=== PATIENT | male | born 1945 | race Caucasian/White ===

== ENCOUNTER 2021-04-02 20:22 | Emergency (ER) | payer OTHER ==
[~2021-04-02] VITALS: Ht 177.8 cm; Wt 77.1 kg
[2021-04-02 20:51] LABS: Hematocrit 37.2 % (37.0-53.0); Hemoglobin 11.9 g/dL (13.5-17.5); Mean Corpuscular HGB 29.6 pg (26.0-34.0); Mean Corpuscular Volume 93 fL (80-100); Platelet Count 56 K/mm3 (150-400); RDW Coefficient Variation 17.8 % (11.7-14.2); RDW Standard Deviation 60.5 fL (35.1-46.3); Red Blood Cell Count 4.02 M/mm3 (4.30-5.90)
[2021-04-02 21:03] LABS: Albumin, Blood 3.2 g/dL (3.4-5.0); Albumin/Globulin Ratio 0.8 (0.8-1.8); Bilirubin, Total 0.5 mg/dL (0.1-1.0); Calcium, Blood 8.5 mg/dL (8.5-10.1); Creatinine, Blood 1.21 mg/dL (0.60-1.20); Potassium, Blood 4.2 mmol/L (3.5-5.5); Total Protein, Blood 7.2 g/dL (6.4-8.2)
[2021-04-02 21:11] LABS: BAND PERCENT MAN 24 % (0-8); BASOPHILS PERCENT MAN 0 % (0-2); EOSINOPHILS ABSOLUTE MAN 0.09 K/mm3 (0.00-0.68); EOSINOPHILS PERCENT MAN 2 % (0-6); LYMPHOCYTES % ATYPICAL MANUAL 2 % (0-0); LYMPHOCYTES ABSOLUTE MAN 0.67 K/mm3 (0.84-5.20); LYMPHOCYTES PERCENT MAN 13 % (21-46); MONOCYTES ABSOLUTE MAN 0.13 K/mm3 (0.16-1.47); MONOCYTES PERCENT MAN 3 % (4-13); SEG NEUTROPHILS PERCENT MAN 56 % (41-73); TOTAL CELLS COUNTED 100
[2021-04-03] MEDS ORDERED: ONDA4ODT MM (00:29)
[2021-04-03] MEDS ORDERED: MECL25 PO (00:29)
== END 2021-04-03 00:50 | disposition home or self-care (01) ==
LOC: ER 20:22
PROVIDERS: Physician Assistant
DX: R42 Dizziness and giddiness (principal); R11.2 Nausea with vomiting, unspecified; E11.9 Type 2 diabetes mellitus without complications; I10 Essential (primary) hypertension; Z20.822 Contact with and (suspected) exposure to COVID-19; Z79.899 Other long term (current) drug therapy
CPT/HCPCS: 70450; 71045; 80053; 85025; 93005; 93010; 99285-25

== ENCOUNTER 2021-05-25 21:52 | Emergency (ER) | payer OTHER ==
[~2021-05-25] VITALS: Ht 177.8 cm; Wt 77.1 kg
[~2021-05-25 21:52] MED LIST: MECL25 PO; ONDA4ODT MM
[2021-05-25 22:22] LABS: BASOPHILS ABSOLUTE AUTO 0.04 K/mm3 (0.00-0.23); BASOPHILS PERCENT AUTO 1 % (0-2); EOSINOPHILS ABSOLUTE AUTO 0.07 K/mm3 (0.00-0.68); EOSINOPHILS PERCENT AUTO 1 % (0-6); Hematocrit 39.3 % (37.0-53.0); Hemoglobin 12.6 g/dL (13.5-17.5); Mean Corpuscular HGB 29.4 pg (26.0-34.0); Mean Corpuscular HGB Conc 32.1 g/dL (31.5-36.5); Mean Corpuscular Volume 92 fL (80-100); RDW Coefficient Variation 18.2 % (11.7-14.2); RDW Standard Deviation 60.9 fL (35.1-46.3); Red Blood Cell Count 4.29 M/mm3 (4.30-5.90); White Blood Cell Count 5.55 K/mm3 (4.00-11.30)
[2021-05-25 22:24] LABS: IMMATURE GRAN ABSOLUTE AUTO 0.92 K/mm3 (0.00-0.10); IMMATURE GRAN PERCENT AUTO 17 % (0-1); LYMPHOCYTES ABSOLUTE AUTO 0.99 K/mm3 (0.84-5.20); LYMPHOCYTES PERCENT AUTO 18 % (21-46); MONOCYTES PERCENT AUTO 9 % (4-13); NEUTROPHILS ABSOLUTE AUTO 3.03 K/mm3 (1.96-9.15); NEUTROPHILS PERCENT AUTO 55 % (41-73)
[2021-05-25 22:25] LABS: Platelet Count 41 K/mm3 (150-400)
[2021-05-25 22:40] LABS: BAND PERCENT MAN 12 % (0-8); BASOPHILS ABSOLUTE MAN 0.05 K/mm3 (0.00-0.23); BASOPHILS PERCENT MAN 1 % (0-2); EOSINOPHILS ABSOLUTE MAN 0.11 K/mm3 (0.00-0.68); EOSINOPHILS PERCENT MAN 2 % (0-6); LYMPHOCYTES % ATYPICAL MANUAL 2 % (0-0); LYMPHOCYTES ABSOLUTE MAN 0.94 K/mm3 (0.84-5.20); LYMPHOCYTES PERCENT MAN 15 % (21-46); METAMYELOCYTE ABSOLUTE MAN 0.11 K/mm3 (0.00-0.00); METAMYELOCYTE PERCENT MAN 2 % (0-0); MONOCYTES ABSOLUTE MAN 0.44 K/mm3 (0.16-1.47); MONOCYTES PERCENT MAN 8 % (4-13); NEUTROPHILS ABSOLUTE MAN 3.88 K/mm3 (1.96-9.15); SEG NEUTROPHILS PERCENT MAN 58 % (41-73); TOTAL CELLS COUNTED 100
[2021-05-25 22:41] LABS: Alanine Aminotransfer (ALT/SGP 17 U/L (12-78); Albumin, Blood 3.3 g/dL (3.4-5.0); Albumin/Globulin Ratio 0.8 (0.8-1.8); Alk Phos 99 U/L (50-136); Anion Gap 7 mmol/L (6-16); Aspartate Aminotrans (AST/SGOT 17 U/L (12-37); Bilirubin, Total 0.5 mg/dL (0.1-1.0); Blood Urea Nitrogen 20 mg/dL (8-24); Bun/Creatinine Ratio 16.1 (12.0-20.0); CO2, Blood 25 mmol/L (21-32); Calcium, Blood 8.9 mg/dL (8.5-10.1); Chloride, Blood 106 mmol/L (98-108); Creatinine, Blood 1.24 mg/dL (0.60-1.20); Ethanol (Alcohol), Blood, Med <3 mg/dL; Globulin, Blood 4.1 g/dL (2.2-4.0); Glomerular Filtration Rate 56 (60-); Glucose, Blood 267 mg/dL (70-99); Potassium, Blood 4.4 mmol/L (3.5-5.5); Sodium, Blood 138 mmol/L (136-145); Total Protein, Blood 7.4 g/dL (6.4-8.2); Troponin I <0.015 ng/mL (0.000-0.040)
[2021-05-26] MEDS ORDERED: MECL25 PO (00:55)
== END 2021-05-26 03:30 | disposition home or self-care (01) ==
LOC: ER 21:52
PROVIDERS: Emergency Medicine
DX: R42 Dizziness and giddiness (principal); D69.6 Thrombocytopenia, unspecified; E11.9 Type 2 diabetes mellitus without complications; I10 Essential (primary) hypertension
CPT/HCPCS: 70450; 80053; 84484; 85025; 93005; 93010; 96374; 96375; 99285-25; A9270; G0480; J2405; J2765; J3360; J7030

== ENCOUNTER 2022-01-23 11:58 | Emergency (ER) | payer OTHER ==
[~2022-01-23] VITALS: Ht 177.8 cm; Wt 77.1 kg
[2022-01-23 12:34] LABS: Source, Urine Clean Catch
[2022-01-23 12:36] LABS: Hematocrit 42.2 % (37.0-53.0); Hemoglobin 13.3 g/dL (13.5-17.5); Mean Corpuscular HGB 29.3 pg (26.0-34.0); Mean Corpuscular HGB Conc 31.5 g/dL (31.5-36.5); Mean Corpuscular Volume 93 fL (80-100); RDW Coefficient Variation 17.4 % (11.7-14.2); RDW Standard Deviation 59.2 fL (35.1-46.3); Red Blood Cell Count 4.54 M/mm3 (4.30-5.90); White Blood Cell Count 4.57 K/mm3 (4.00-11.30)
[2022-01-23 12:37] LABS: Appearance, Urine Clear (Clear); Bilirubin, Urine Neg (Neg); Blood, Urine 1+ (Neg); Color, Urine Yellow (P-Yellow); Glucose Qualitative, Urine 4+ (Neg); Ketones, Urine 1+ (Neg); Leukocyte Esterase, Urine Neg (Neg); Nitrite, Urine Neg (Neg); Protein, Urine Neg (Neg); Urobilinogen, Urine NORM (Normal); pH, Urine 6.5 (5.0-8.0)
[2022-01-23 12:47] LABS: White Blood Cells, Urine 0-2 /hpf (0-5)
[2022-01-23 12:48] LABS: Bacteria Rare /hpf; Red Blood Cells, Urine 0-2 /hpf (0-2); Squamous Epithelial Cells Rare /hpf (Few)
[2022-01-23 13:02] LABS: Platelet Count 46 K/mm3 (150-400)
[2022-01-23 13:03] LABS: Base Excess Venous 0.5 mmol/L; Bicarbonate Venous 23.5 mmol/L (24.0-30.0); PCO2 Venous 54.6 mmHg (38-42); PO2 Venous 39.4 mmHg (38-42)
[2022-01-23 13:08] LABS: Albumin, Blood 3.4 g/dL (3.4-5.0); Albumin/Globulin Ratio 0.8 (0.8-1.8); BAND PERCENT MAN 14 % (0-8); BASOPHILS PERCENT MAN 0 % (0-2); Bilirubin, Total 0.7 mg/dL (0.1-1.0); Bun/Creatinine Ratio 20.6 (12.0-20.0); Calcium, Blood 8.8 mg/dL (8.5-10.1); Creatinine, Blood 1.07 mg/dL (0.60-1.20); EOSINOPHILS ABSOLUTE MAN 0.04 K/mm3 (0.00-0.68); EOSINOPHILS PERCENT MAN 1 % (0-6); Globulin, Blood 4.2 g/dL (2.2-4.0); LYMPHOCYTES ABSOLUTE MAN 0.68 K/mm3 (0.84-5.20); LYMPHOCYTES PERCENT MAN 15 % (21-46); MONOCYTES ABSOLUTE MAN 0.04 K/mm3 (0.16-1.47); MONOCYTES PERCENT MAN 1 % (4-13); NEUTROPHILS ABSOLUTE MAN 3.79 K/mm3 (1.96-9.15); Potassium, Blood 4.5 mmol/L (3.5-5.5); SEG NEUTROPHILS PERCENT MAN 69 % (41-73); TOTAL CELLS COUNTED 100; Total Protein, Blood 7.6 g/dL (6.4-8.2)
[2022-01-23] MEDS ORDERED: MECL12.5 PO (14:26)
[2022-01-23] MEDS ORDERED: PROM12.5S PR (14:26)
== END 2022-01-23 15:10 | disposition home or self-care (01) ==
LOC: ER 11:58
PROVIDERS: Physician Assistant
DX: R42 Dizziness and giddiness (principal); I10 Essential (primary) hypertension; E11.9 Type 2 diabetes mellitus without complications; Z79.899 Other long term (current) drug therapy; Z91.14 Patient's other noncompliance with medication regimen
CPT/HCPCS: 70450; 71045; 80053; 81001; 82803; 85025; 93005; 93010; 96374; 99285-25; A9270; J2550; J7030

== ENCOUNTER 2024-03-28 21:45 | Emergency (ER) | payer OTHER ==
[~2024-03-28] VITALS: Ht 177.8 cm; Wt 74.8 kg
[~2024-03-28 21:45] MED LIST changes: +MECL12.5 PO; +PROM12.5S PR
[2024-03-28 22:27] VITALS: BP 162/88
== END 2024-03-28 23:18 | disposition home or self-care (01) ==
LOC: ER 21:45
DX: Z48.812 Encounter for surgical aftercare following surgery on the circulatory system (principal); E11.9 Type 2 diabetes mellitus without complications; I10 Essential (primary) hypertension; Z79.899 Other long term (current) drug therapy
CPT/HCPCS: 99283

== ENCOUNTER → 2024-06-13 | Outpatient (CLI) | payer OTHER ==
[~2024-06-13] MED LIST changes: +LOSA50 PO; +PRED20 PO; +Prednisone10 MG PO; +SITA100T2 PO
[2024-06-13 17:24] LABS: Hematocrit 27.2 % (37.0-53.0); Hemoglobin 8.4 g/dL (13.5-17.5); Mean Corpuscular HGB 30.2 pg (26.0-34.0); Mean Corpuscular HGB Conc 30.9 g/dL (31.5-36.5); Mean Corpuscular Volume 98 fL (80-100); RDW Standard Deviation 77.8 fL (35.1-46.3); Red Blood Cell Count 2.78 M/mm3 (4.30-5.90); White Blood Cell Count 7.66 K/mm3 (4.00-11.30)
[2024-06-13 18:21] LABS: Platelet Count 32 K/mm3 (150-400)
[2024-06-13 18:28] LABS: BAND PERCENT MAN 22 % (0-8); BASOPHILS PERCENT MAN 0 % (0-2); EOSINOPHILS PERCENT MAN 0 % (0-6); LYMPHOCYTES % ATYPICAL MANUAL 1 % (0-0); LYMPHOCYTES ABSOLUTE MAN 1.37 K/mm3 (0.84-5.20); LYMPHOCYTES PERCENT MAN 17 % (21-46); MONOCYTES ABSOLUTE MAN 0.91 K/mm3 (0.16-1.47); MONOCYTES PERCENT MAN 12 % (4-13); NEUTROPHILS ABSOLUTE MAN 5.36 K/mm3 (1.96-9.15); SEG NEUTROPHILS PERCENT MAN 48 % (41-73); TOTAL CELLS COUNTED 100
== END ==
LOC: LAB 15:51 → LAB SHORT 15:51
PROVIDERS: Internal Medicine Hematology & Oncology
DX: D69.6 Thrombocytopenia, unspecified (principal)
CPT/HCPCS: 85025

== ENCOUNTER 2024-06-18 10:44 | Inpatient (IN) | payer OTHER ==
[~2024-06-18] VITALS: Ht 167.6 cm; Wt 61.4 kg
[~2024-06-18 10:44] MED LIST changes: -LOSA50 PO; -PRED20 PO; -Prednisone10 MG PO; -SITA100T2 PO
[2024-06-18] MEDS ORDERED: NS 1,000 ML IV SCH ×2 (11:50→15:10)
[2024-06-18 11:52] LABS: Source, Urine Straight Cath
[2024-06-18 12:01] LABS: Hematocrit 24.5 % (37.0-53.0); Hemoglobin 7.6 g/dL (13.5-17.5); Mean Corpuscular HGB 29.9 pg (26.0-34.0); Mean Corpuscular Volume 97 fL (80-100); RDW Coefficient Variation 21.7 % (11.7-14.2); Red Blood Cell Count 2.54 M/mm3 (4.30-5.90); White Blood Cell Count 10.82 K/mm3 (4.00-11.30)
[2024-06-18 12:04] LABS: Appearance, Urine Hazy (Clear); Bilirubin, Urine Neg (Neg); Blood, Urine 5+ (Neg); Color, Urine Yellow (P-Yellow); Glucose Qualitative, Urine 4+ (Neg); Ketones, Urine Neg (Neg); Leukocyte Esterase, Urine 3+ (Neg); Nitrite, Urine Pos (Neg); Protein, Urine 2+ (Neg); Urobilinogen, Urine NORM (Normal); pH, Urine 6.5 (5.0-8.0)
[2024-06-18 12:06] LABS: Platelet Count 24 K/mm3 (150-400)
[2024-06-18 12:13] LABS: Albumin, Blood 2.6 g/dL (3.4-5.0); Albumin/Globulin Ratio 0.5 (0.8-1.8); Bun/Creatinine Ratio 48.4 (12.0-20.0); Calcium, Blood 8.9 mg/dL (8.5-10.1); Creatinine, Blood 1.59 mg/dL (0.60-1.20); Globulin, Blood 4.8 g/dL (2.2-4.0); Magnesium, Blood 2.1 mg/dL (1.6-2.4); Phosphorus, Blood 3.1 mg/dL (2.5-4.9); Potassium, Blood 4.9 mmol/L (3.5-5.5); Total Protein, Blood 7.4 g/dL (6.4-8.2)
[2024-06-18 12:13] LABS: Bacteria Many /hpf; Squamous Epithelial Cells Few /hpf (Few); White Blood Cells, Urine TNTC /hpf (0-5)
[2024-06-18] MEDS ORDERED: LOSA50 PO (12:19)
[2024-06-18] MEDS ORDERED: Prednisone10 MG PO (12:19)
[2024-06-18] MEDS ORDERED: SITA100T2 PO (12:19)
[2024-06-18 12:20] LABS: BASOPHILS PERCENT MAN 0 % (0-2); TOTAL CELLS COUNTED 100
[2024-06-18 12:30] LABS: BAND PERCENT MAN 16 % (0-8); EOSINOPHILS PERCENT MAN 1 % (0-6); LYMPHOCYTES ABSOLUTE MAN 0.54 K/mm3 (0.84-5.20); LYMPHOCYTES PERCENT MAN 5 % (21-46); MONOCYTES ABSOLUTE MAN 0.97 K/mm3 (0.16-1.47); MONOCYTES PERCENT MAN 9 % (4-13); NEUTROPHILS ABSOLUTE MAN 9.19 K/mm3 (1.96-9.15); SEG NEUTROPHILS PERCENT MAN 69 % (41-73)
[2024-06-18] MEDS ORDERED: Vancomycin HCL 2,000 MG in NS 520 ML IV ONE (12:30)
[2024-06-18] MEDS ORDERED: Piperacillin/Tazobactam Sod 3.375 GM in NS 100 ML IV ONE (12:35)
[2024-06-18] MEDS ORDERED: Lidocaine/Tetracaine/Epinephr 3 ML GEL SYRINGE TOP ONE (12:45)
[2024-06-18] MEDS ORDERED: Vancomycin HCL 1,250 MG in NS 250 ML IV ONE (13:20)
[2024-06-18] MEDS ORDERED: FLU VACC TS2024-25(6MOS UP)/PF 45 MCG/0.5 ML SYRINGE IM SCH (15:10)
[2024-06-18] MEDS ORDERED: CefTRIAXone Sodium 1,000 MG in NS 100 ML IV SCH (16:00)
[2024-06-18] MEDS ORDERED: Meclizine HCl 25 MG Tab PO PRN (17:20)
[2024-06-18] MEDS ORDERED: PRED20 PO (18:27)
[2024-06-18 18:31] VITALS: BP 130/71
--- NOTE | 2024-06-18 19:03 | NUR ---
ADMIT/SUMMARY PATIENT ADMITTED FROM ER AT 1815. PATIENT SETTLED INTO ROOM. PATIENT ORIENTED TO ROOM. ADMISSION COMPLETE. PATIENT A&OX4. HOME MEDS COMPLETED. WALLET AND HOME MEDICATIONS IN LOCK BOX IN ROOM PER PATIENT REQUEST. PATIENT REPORTING POOR FOOR INTAKE. IV FLUIDS STARTED. CRITICAL TROP AT 161. DR. HANNON CALLED. PATIENT SHOWED HOW TO USE CALL LIGHT AND TV CONTROLS. PATIENT IS PLEASANT AND COOPERATIVE WITH CARE. REPORT TO LYNDSAY DISLA NIGHTSGAFT NURSE.
--- NOTE | 2024-06-18 19:57 | NUR ---
BG AT HS, 415. NOTIFIED. NEW ORDER FOR HUMULIN ENTERED TO EMAR BY THE
[2024-06-18 20:09] VITALS: BP 127/64
[2024-06-18] MEDS ORDERED: Insulin Human Lispro 100 Units/ML 3ML Syringe SC SCH (21:00)
[2024-06-18] MEDS ORDERED: Lactobacil 2-S.Thermo-Bifido 1 1 Cap PO SCH (21:00)
[2024-06-18] MEDS ORDERED: Insulin Regular 100 UNIT/ML 10ML Vial SC SCH (21:00)
[2024-06-19 00:17] LABS: Hemoglobin 7.4 g/dL (13.5-17.5); Mean Corpuscular HGB 29.7 pg (26.0-34.0); Mean Corpuscular HGB Conc 30.8 g/dL (31.5-36.5); Mean Corpuscular Volume 96 fL (80-100); RDW Coefficient Variation 21.5 % (11.7-14.2); Red Blood Cell Count 2.49 M/mm3 (4.30-5.90)
[2024-06-19 00:26] LABS: Platelet Count 21 K/mm3 (150-400)
[2024-06-19 00:39] LABS: Percent Saturation 21.2 % (20.0-50.0)
[2024-06-19 00:45] LABS: BAND PERCENT MAN 32 % (0-8); BASOPHILS PERCENT MAN 0 % (0-2); EOSINOPHILS PERCENT MAN 0 % (0-6); LYMPHOCYTES ABSOLUTE MAN 0.43 K/mm3 (0.84-5.20); LYMPHOCYTES PERCENT MAN 4 % (21-46); MONOCYTES ABSOLUTE MAN 0.54 K/mm3 (0.16-1.47); MONOCYTES PERCENT MAN 5 % (4-13); NEUTROPHILS ABSOLUTE MAN 9.91 K/mm3 (1.96-9.15); SEG NEUTROPHILS PERCENT MAN 59 % (41-73); TOTAL CELLS COUNTED 100
[2024-06-19 00:58] LABS: Bun/Creatinine Ratio 45.7 (12.0-20.0); Calcium, Blood 8.2 mg/dL (8.5-10.1); Creatinine, Blood 1.4 mg/dL (0.60-1.20); Potassium, Blood 4.4 mmol/L (3.5-5.5)
--- NOTE | 2024-06-19 01:05 | NUR ---
PT'S MIDNIGHT LABS: TROPONIN 216, PLATELETS 21. WILL NOTIFY ON-CALL HOSPITALIST.
--- NOTE | 2024-06-19 03:32 | NUR ---
SHIFT SUMMARY PT IS A&O X3, VERY [place], COOPERATIVE WITH CARE, VERY PLEASANT. PT'S FRIEND/ROOMMATE CALLED A FEW TIMES, LEFT A MESSAGE WITH HIM MANAGER REQUESTING A CALL BACK FROM THIS [employer] MANA[employer]/AN UPDATE OF PT'S CONDITION. UNABLE TO PROVIDE D/T PT ASLEEP AND FEMALE FRIEND NOT LISTED A CONTACT ON PT'S MEDICAL RECORD OR PHYSICAL CHART. PT DENIES PAIN, IS ON RA, O2>90%. CRITICAL VALUES FOR TROPONIN AND PLATELETS RECEIVED FROM HEMATOLOGY. NOTIFIED ON-CALL HOSPITALIST. NOW NEW ORDERS AT THIS TIME. HS B, PROVIDER NOTIFIED. NEW ORDER FOR HUMULIN IN THE EMAR. BED AT THE LOWEST POSITION, CALL LIGHT W/I REACH. NO ACUTE EVENTS DURING THIS SHIFT.
[2024-06-19 04:25] VITALS: BP 140/71
--- NOTE | 2024-06-19 06:02 | NUR ---
VENIPUNCTURE LAB RESULTS RECEIVED FROM LAB: GRAM POSITIVE COCCI IN CLUSTERS.
[2024-06-19 07:31] VITALS: BP 120/60
[2024-06-19] MEDS ORDERED: Folic Acid 1 MG in NS 50 ML IV SCH (10:57)
--- NOTE | 2024-06-19 11:58 | NUR ---
PATIENT HAS VISITORS PACHECO AND CLARA. PATIENT ASKED FOR WALLET, WALLET REMOVED FROM LOCKED CUPBOARD IN ROOM AND GIVEN TO PATIENT. PATIENT GAVE PERMISSION TO DISCUSS HIS MEDICAL WITH CLARA AND PACHECO-PHONE NUMBERS ON BOARD. 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 CLARA AND PACHECO WILL BE PATIENTS RIDE UPON DISCHARGE PER PATIENT.
--- NOTE | 2024-06-19 12:31 | NUR ---
EKG MONITOR IN AT BEDSIDE TO ASSESS PATIENTS ABCESS TO RIGHT UPPER CHEST AND RIGHT LEG BEHIND KNEE. REPORTS THAT BOTH AREAS WILL NEED TO BE DRAINED AND DRAINAGE POSSIBLE LATER TODAY 06/09/24. DR. POLK TO REVIEW PATIENTS NOTES AND WILL BE BACK TO TALK TO JACKSON.
[2024-06-19] MEDS ORDERED: Vancomycin HCL 1,000 MG in NS 250 ML IV SCH (15:00)
[2024-06-19 15:10] VITALS: BP 127/63
--- NOTE | 2024-06-19 18:37 | NUR ---
SHIFT SUMMARY. PATIENT IS A&OX4 AND VERY HARD OF HEARING. 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 PATIENT REPORTS HE HAS DENTURES AT HOME BUT HE DOES NOT HAVE THEM HERE-PATIENTS DIET CHANGED TO BITE SIZE AND SOFT LEVEL 6 AND PATIENT IS STILL HAVING A DIFFICULT TIME CHEWING FOOD-PATIENT SHOWED THE MENU AND NEEDS ASSISTANCE WITH ORDERING FOODS BUT FEELS HE CAN TOLERATE SOMETHINGS ON THE MENU W/O HIS DENTURES. PATIENT IS USING THE URINAL-UA SENT OUT TODAY-URINE IS DARK IN COLOR WITH SEDEMENT-PATIENT DENIES DIFFICULTY URINATING. PATIENT IS ABLE TO MAKE HIS NEEDS KNOWN. PT IN TO SEE PATIENT TODAY-PATIENT IS A 2P ASSIST W/FWW AND GB TO BSC-PT IS RECOMMENDING SNF-CASE MANAGEMENT SENT REFERRALS TO [place], [facility] AND [facility]. PATIENT IS RECEIVING IV ABX-CULTURES BACK TODAY. BED IS LOCKED IN THE LOWEST POSITION WITH CALL LIGHT IN REACH. BED EXIT ENGAGED FOR PATIENT SAFETY. CARE IS ONGOING.
[2024-06-19 19:45] VITALS: BP 126/60
[2024-06-20] VITALS (16 sets, daily range): BP systolic 114–166; BP diastolic 46–67
--- NOTE | 2024-06-20 04:24 | NUR ---
POULTRY INSEMINATOR SUMMARY VSS. IVF OF NS INFUSING AT 100 ML/HR ORDERED. ALERT TO QUESTIONS BUT HARD OF HEARING. COOPERATIVE WITH TREATMENT. ABLE TO REPOSITION SELF IN BED WITHOUT ASSIST. HAS BEEN RESTING QUIETLY WITH FEW INTERRUPTIONS. HOB ELEVATED FOR COMFORT. CALL LIGHT IN REACH, RAILS UP X 2 AND BED IN LOW POSITION FOR SAFETY. WILL CONTINUE TO MONITOR.
[2024-06-20 07:17] LABS: Hemoglobin 6.7 g/dL (13.5-17.5); Mean Corpuscular HGB 29.8 pg (26.0-34.0); Mean Corpuscular HGB Conc 30.5 g/dL (31.5-36.5); Mean Corpuscular Volume 98 fL (80-100); RDW Coefficient Variation 21.2 % (11.7-14.2); RDW Standard Deviation 75.7 fL (35.1-46.3); Red Blood Cell Count 2.25 M/mm3 (4.30-5.90); White Blood Cell Count 7.54 K/mm3 (4.00-11.30)
[2024-06-20 07:32] LABS: Platelet Count 19 K/mm3 (150-400)
[2024-06-20 07:34] LABS: Anion Gap 11 mmol/L (3-11); Blood Urea Nitrogen 43 mg/dL (8-24); Bun/Creatinine Ratio 34.4 (12.0-20.0); CO2, Blood 20 mmol/L (21-32); Calcium, Blood 7.9 mg/dL (8.5-10.1); Chloride, Blood 110 mmol/L (98-108); Creatinine, Blood 1.25 mg/dL (0.60-1.20); Glomerular Filtration Rate 58 (60-); Glucose, Blood 249 mg/dL (70-99); Phosphorus, Blood 1.8 mg/dL (2.5-4.9); Sodium, Blood 137 mmol/L (136-145)
[2024-06-20 07:47] LABS: BASOPHILS PERCENT MAN 0 % (0-2); EOSINOPHILS PERCENT MAN 0 % (0-6); LYMPHOCYTES PERCENT MAN 8 % (21-46); METAMYELOCYTE ABSOLUTE MAN 0.07 K/mm3 (0.00-0.00); METAMYELOCYTE PERCENT MAN 1 % (0-0); MONOCYTES ABSOLUTE MAN 0.52 K/mm3 (0.16-1.47); MONOCYTES PERCENT MAN 7 % (4-13); NEUTROPHILS ABSOLUTE MAN 6.33 K/mm3 (1.96-9.15); SEG NEUTROPHILS PERCENT MAN 84 % (41-73); TOTAL CELLS COUNTED 100
[2024-06-20] MEDS ORDERED: Sodium Phosphate 30 MM in Dextrose 5% 500 ML IV STA (08:15)
[2024-06-20] MEDS ORDERED: NS 500 ML IV SCH (09:40)
--- NOTE | 2024-06-20 19:20 | NUR ---
SHIFT SUMMARY PT AXO PLEASANT AND COOPERATIVE WITH CARE THOUGH COMANCHE. HEARING AIDES AT BEDSIDE. 2 UNITS OF BLOOD THIS SHIFT. BILATERAL PERIPHERAL IV'S PATENT AND INFUSING PER EMAR. PT DENIES PAIN, SOB AND NV. CBG ACHS, MEDICATED PER EMAR. BED IN LOW POSITION, CALL LIGHT WITHIN REACH.
[2024-06-21 03:53] VITALS: BP 152/64
--- NOTE | 2024-06-21 04:00 | NUR ---
JOSE IN [facility], BROUGHT PATIENT IN A BAG OF CLOTHES, PUZZLE BOOKS, KEYS AND DEBIT CARD. JOSE REPORT FEELING OVERWHELMED WITH THE RESPONSIBILIITY OF CARING FOR THE PATIENT AND REQUESTING FOR FAMILY TO BE MORE INVOLVED IN THE PATIENTS MEDICAL CARE THEY CARE ABOUT THE PATIENT BUT ARE FEELING OVERWHELMED WITH PATIENTS NEEDS THEY RENT A ROOM FROM THE PATIENT.
--- NOTE | 2024-06-21 04:11 | NUR ---
SHIFT SUMMARY. PATIENT IS A&OX3-4. PATIENT DID NOT EAT DINNER AND REPORTS THAT HE DID NOT HAVE AN APPETITE. PATIENT HAD CLEAR ENSURE-HE REPORTS THAT HE LIKES THE CLEAT ENSURES. PATIENT COMPLETED 2 UNITS OF PRBCS AND WILL HAVE REPEAT AM LABS. PATIENT IS HOPI, PLEASANT AND COOPERATIVE WITH CARE. PATIENT IS USING THE URINAL AT BEDSIDE. PATIENT ABLE TO SIT ON SIDE OF BED. PATIENTS GOAL FOR 06/21/24 IS TO GET UP AND WALK TO THE BATHROOM AND TAKE A SHOWER-WILL PASS ON TO DAYSHIFT PATIENTS GOAL. PATIENT REPORTS HE IS FEELING BETTER TODAY. PATIENT RESTED OFF AND ON T/O NIGHT. BED IS LOCKED IN THE LOWEST POSITION WITH CALL LIGHT IN REACH. CARE IS ONGOING.
[2024-06-21 07:28] VITALS: BP 138/61
[2024-06-21 09:08] LABS: Hematocrit 27.3 % (37.0-53.0); Hemoglobin 8.7 g/dL (13.5-17.5); Mean Corpuscular HGB 29.3 pg (26.0-34.0); Mean Corpuscular HGB Conc 31.9 g/dL (31.5-36.5); RDW Standard Deviation 74.7 fL (35.1-46.3); Red Blood Cell Count 2.97 M/mm3 (4.30-5.90); White Blood Cell Count 7.53 K/mm3 (4.00-11.30)
[2024-06-21 09:22] LABS: Mean Corpuscular Volume 92 fL (80-100)
[2024-06-21 09:24] LABS: Platelet Count 17 K/mm3 (150-400)
[2024-06-21 09:30] LABS: Anion Gap 12 mmol/L (3-11); Blood Urea Nitrogen 28 mg/dL (8-24); Bun/Creatinine Ratio 23.7 (12.0-20.0); CO2, Blood 18 mmol/L (21-32); Calcium, Blood 7.5 mg/dL (8.5-10.1); Chloride, Blood 112 mmol/L (98-108); Creatinine, Blood 1.18 mg/dL (0.60-1.20); Glomerular Filtration Rate 62 (60-); Glucose, Blood 245 mg/dL (70-99); Phosphorus, Blood 2.1 mg/dL (2.5-4.9); Potassium, Blood 3.8 mmol/L (3.5-5.5); Sodium, Blood 138 mmol/L (136-145)
[2024-06-21 10:07] LABS: BASOPHILS PERCENT MAN 0 % (0-2); EOSINOPHILS PERCENT MAN 0 % (0-6); LYMPHOCYTES ABSOLUTE MAN 0.52 K/mm3 (0.84-5.20); LYMPHOCYTES PERCENT MAN 7 % (21-46); MONOCYTES ABSOLUTE MAN 0.22 K/mm3 (0.16-1.47); MONOCYTES PERCENT MAN 3 % (4-13); NEUTROPHILS ABSOLUTE MAN 6.77 K/mm3 (1.96-9.15); SEG NEUTROPHILS PERCENT MAN 90 % (41-73); TOTAL CELLS COUNTED 100
--- NOTE | 2024-06-21 12:51 | NUR ---
Pt laying in bed awake a/ox4, assiniboine and sioux, pleasant and cooperative with care, follows commands well, denies pain, lungs are clear dim t/o, resp even and unlabored, no cough noted, on r/a, hrr, 1-2+ edema noted to b/l le, right foot is sore to touch, piv x2 to r and l f/a's, sites are clear and patent, btx4, abd flat soft nontender, voids clear jhoana urine via urinal without diff, skin has a lesion to right upper chest with dressing over, sent culter per Dr. Chino, and one behind right knee, skin is very dry, maew, weak, felecia, call light in reach.
[2024-06-21 14:47] LABS: Creatinine, Blood 1.17 mg/dL (0.60-1.20); Vancomycin, Trough 11.6 ug/mL (5.0-10.0)
[2024-06-21 15:58] VITALS: BP 168/72
[2024-06-21] MEDS ORDERED: Potassium Phosphate Dibasic 30 MM in Dextrose 5% 500 ML IV STA (15:59)
[2024-06-21] MEDS ORDERED: Vancomycin HCL 1,250 MG in NS 250 ML IV SCH (16:00)
[2024-06-21] MEDS ORDERED: CeFAZolin Sodium 2,000 MG in NS 100 ML IV SCH (16:00)
[2024-06-21 18:13] LABS: HOMOCYSTEINE,TOTAL 17 umol/L (0-15)
--- NOTE | 2024-06-21 18:39 | NUR ---
pt up to chair for lunch, he is very weak, and only shuffles but can hold his weight, this afternoon said his right foot is hurting and heavy feeling, foot has a dollar size bruise with a small opening in the middle, pt remembered his foot getting caught at the foot of the bed early this am and had to pull it out, notified, and bandaide placed, no further changes this shift. call light in reach.
[2024-06-21 19:25] VITALS: BP 137/65
[2024-06-22 03:52] VITALS: BP 132/55
--- NOTE | 2024-06-22 04:13 | NUR ---
SHIFT SUMMARY. PATIENT IS A&OX4. PATIENT IS EXTREMELY [place]-PATIENT IS COMPLETELY DEAF IN LEFT EAR AND HEARS BEST WHEN YOU SPEAK LOUDLY TO RIGHT SIDE. PATIENT IS TIRED THIS SHIFT HE HAS RESTED OFF AND ON T/O THE NIGHT UP AT TIMES TO USE THE URINAL. PATIENTS RESPIRATIONS ARE EQUAL AND UNLABORED. DURING MORNING VITALS PATIENTS TEMPERATURE IS ELEVATED. PATIENT DENIES CHILLS. PATIENT IS PLEASANT AND COOPERATIVE WITH CARE. BED IS LOCKED IN THE LOWEST POSITION WITH CALL LIGHT IN REACH. CARE IS ONGOING.
[2024-06-22 06:46] LABS: Hematocrit 24.7 % (37.0-53.0); Hemoglobin 7.8 g/dL (13.5-17.5); Mean Corpuscular HGB 29.1 pg (26.0-34.0); Mean Corpuscular HGB Conc 31.6 g/dL (31.5-36.5); Mean Corpuscular Volume 92 fL (80-100); RDW Coefficient Variation 22.2 % (11.7-14.2); RDW Standard Deviation 73.1 fL (35.1-46.3); Red Blood Cell Count 2.68 M/mm3 (4.30-5.90); White Blood Cell Count 5.97 K/mm3 (4.00-11.30)
[2024-06-22 06:58] LABS: Albumin, Blood 1.8 g/dL (3.4-5.0); Anion Gap 13 mmol/L (3-11); Blood Urea Nitrogen 22 mg/dL (8-24); Bun/Creatinine Ratio 18.8 (12.0-20.0); CO2, Blood 19 mmol/L (21-32); Calcium, Blood 7.3 mg/dL (8.5-10.1); Chloride, Blood 108 mmol/L (98-108); Creatinine, Blood 1.17 mg/dL (0.60-1.20); Glomerular Filtration Rate 63 (60-); Glucose, Blood 202 mg/dL (70-99); Phosphorus, Blood 2.1 mg/dL (2.5-4.9); Potassium, Blood 3.8 mmol/L (3.5-5.5); Sodium, Blood 136 mmol/L (136-145)
[2024-06-22 07:32] LABS: Platelet Count 16 K/mm3 (150-400)
[2024-06-22 07:53] VITALS: BP 130/52
--- NOTE | 2024-06-22 09:00 | NUR ---
pt laying in bed awake a/ox4, very [place], pleasant and cooperative with care, follows commands well, denies pain at this time, states his night was good, lungs are clear dim t/o, resp even and unlabored, no cough noted, hrr, edema noted to b/l [place] right foot, is a bit less than yesterday, piv to r and l fa's, btx4, abd flat soft nontender, voids without diff, skin has multiple sores, and bruises see assessment, felecia bynum, call light in reach.
[2024-06-22 09:43] LABS: BAND PERCENT MAN 1 % (0-8); BASOPHILS ABSOLUTE MAN 0.11 K/mm3 (0.00-0.23); BASOPHILS PERCENT MAN 2 % (0-2); EOSINOPHILS ABSOLUTE MAN 0.05 K/mm3 (0.00-0.68); EOSINOPHILS PERCENT MAN 1 % (0-6); LYMPHOCYTES ABSOLUTE MAN 0.41 K/mm3 (0.84-5.20); LYMPHOCYTES PERCENT MAN 7 % (21-46); MONOCYTES ABSOLUTE MAN 0.17 K/mm3 (0.16-1.47); MONOCYTES PERCENT MAN 3 % (4-13); NEUTROPHILS ABSOLUTE MAN 5.19 K/mm3 (1.96-9.15); SEG NEUTROPHILS PERCENT MAN 86 % (41-73); TOTAL CELLS COUNTED 100
--- NOTE | 2024-06-22 16:25 | NUR ---
THIS RN TOOK OVER CARE AT 1300. THE PATIENT IS ALERT AND ORIENTED AND COOPERATIVE WITH CARE. ON RA. WORKED WITH OT THIS AFTERNOON. WINNEBAGO. BEDBATH THIS SHIFT. RN GAVE AN UPDATE TO THE PATIENT'S SON OVER THE TELEPHONE. THE SON IS CONCERNED ABOUT THE PATIENT'S RIGHT FOOT AND THE BRUISE ON TOP. HE IS WORRIED THAT HIS FOOT MIGHT BE FRACTURED AND IS WONDERING IF DR. SAMSON WOULD THINK AN XRAY WOULD BE APPROPRIATE. WILL CONTINUE TO MONITOR
[2024-06-22 16:36] VITALS: BP 140/58
[2024-06-22] MEDS ORDERED: Potassium Phos/Sodium Phos 250 MG PACK PO SCH (17:00)
[2024-06-22 20:14] VITALS: BP 127/56
[2024-06-23 04:49] VITALS: BP 119/57
--- NOTE | 2024-06-23 04:51 | NUR ---
SHIFT SUMMARY PT ALERT ORIENTED X 4 ABLE TO VERBALIZE NEEDS. HES VERY HARD OF HEARING AND DEAF IN THE LEFT EAR. HES SLEPT MOST OF THE NIGHT. HE USES THE URINAL IN THE BED. REMAINS ON ANCEF Q8HR FOR UTI. FS DONE AC AND HS WAS 159. VSS ON RA SATTING AT 100%. HIS RT FOOT REMAINS BRUISED AND SWOLLEN. HIS HGB YESTERDAY WAS 7.8 AND HIS PLT WERE 16 AND THEY CONTINUE TO TREND DOWN. HES SLEEPING AT THIS TIME WITH CALL LIGHT IN REACH AND BED IN LOW POSITION.
[2024-06-23 06:39] LABS: Hematocrit 26.5 % (37.0-53.0); Hemoglobin 8.5 g/dL (13.5-17.5); Mean Corpuscular HGB 29.4 pg (26.0-34.0); Mean Corpuscular HGB Conc 32.1 g/dL (31.5-36.5); Mean Corpuscular Volume 92 fL (80-100); RDW Coefficient Variation 21.3 % (11.7-14.2); Red Blood Cell Count 2.89 M/mm3 (4.30-5.90); White Blood Cell Count 4.88 K/mm3 (4.00-11.30)
[2024-06-23 06:47] LABS: Platelet Count 16 K/mm3 (150-400)
[2024-06-23 07:05] VITALS: BP 116/51
[2024-06-23 07:20] LABS: BAND PERCENT MAN 18 % (0-8); BASOPHILS ABSOLUTE MAN 0.04 K/mm3 (0.00-0.23); BASOPHILS PERCENT MAN 1 % (0-2); BLASTS PERCENT MAN 2 % (0-0); EOSINOPHILS ABSOLUTE MAN 0.04 K/mm3 (0.00-0.68); EOSINOPHILS PERCENT MAN 1 % (0-6); LYMPHOCYTES % ATYPICAL MANUAL 1 % (0-0); LYMPHOCYTES ABSOLUTE MAN 0.43 K/mm3 (0.84-5.20); LYMPHOCYTES PERCENT MAN 8 % (21-46); MONOCYTES ABSOLUTE MAN 0.29 K/mm3 (0.16-1.47); MONOCYTES PERCENT MAN 6 % (4-13); NEUTROPHILS ABSOLUTE MAN 3.95 K/mm3 (1.96-9.15); SEG NEUTROPHILS PERCENT MAN 63 % (41-73); TOTAL CELLS COUNTED 100
[2024-06-23 07:22] LABS: Albumin, Blood 1.7 g/dL (3.4-5.0); Albumin/Globulin Ratio 0.4 (0.8-1.8); Bilirubin, Total 0.6 mg/dL (0.1-1.0); Bun/Creatinine Ratio 17.2 (12.0-20.0); Calcium, Blood 7.3 mg/dL (8.5-10.1); Creatinine, Blood 1.16 mg/dL (0.60-1.20); Globulin, Blood 4.1 g/dL (2.2-4.0); Total Protein, Blood 5.8 g/dL (6.4-8.2)
[2024-06-23 15:16] VITALS: BP 127/56
--- NOTE | 2024-06-23 17:52 | NUR ---
SHIFT SUMMARY PT A&OX4, VSS, AMB W/ 1P ASSIST, TOLERATING PO, VOIDING, AND DENIED PAIN. PT STATED THAT HE FELT THAT THE FURUNCULOSIS WAS IMPROVING. PT'S PLT CONT TO BE CRIT LOW. NO OTHER ACUTE CHANGES. CALL LIGHT WITHIN REACH AND PT ABLE TO MAKE NEEDS KNOWN.
[2024-06-23 19:48] VITALS: BP 123/59
[2024-06-23 23:23] LABS: MMA S/P,VITAMIN B12 STATUS 0.3 umol/L (0.00-0.40)
--- NOTE | 2024-06-24 04:16 | NUR ---
SHIFT SUMMARY PATIENT SLEPT IN LONG INTERVALS. C/O ITCHING OF SKIN. VITALS STABLE,
[2024-06-24 05:11] VITALS: BP 111/45
[2024-06-24 05:35] LABS: Hematocrit 26.7 % (37.0-53.0); Hemoglobin 8.5 g/dL (13.5-17.5); Mean Corpuscular HGB 29.2 pg (26.0-34.0); Mean Corpuscular HGB Conc 31.8 g/dL (31.5-36.5); Mean Corpuscular Volume 92 fL (80-100); RDW Coefficient Variation 21.1 % (11.7-14.2); RDW Standard Deviation 70.2 fL (35.1-46.3); Red Blood Cell Count 2.91 M/mm3 (4.30-5.90); White Blood Cell Count 3.84 K/mm3 (4.00-11.30)
[2024-06-24 05:46] LABS: Platelet Count 16 K/mm3 (150-400)
[2024-06-24 05:59] LABS: Bun/Creatinine Ratio 16.7 (12.0-20.0); Calcium, Blood 7.3 mg/dL (8.5-10.1); Creatinine, Blood 1.14 mg/dL (0.60-1.20); Potassium, Blood 3.9 mmol/L (3.5-5.5)
[2024-06-24 07:22] LABS: BAND PERCENT MAN 12 % (0-8); BASOPHILS PERCENT MAN 0 % (0-2); EOSINOPHILS ABSOLUTE MAN 0.11 K/mm3 (0.00-0.68); EOSINOPHILS PERCENT MAN 3 % (0-6); LYMPHOCYTES % ATYPICAL MANUAL 4 % (0-0); LYMPHOCYTES ABSOLUTE MAN 0.72 K/mm3 (0.84-5.20); LYMPHOCYTES PERCENT MAN 15 % (21-46); MONOCYTES ABSOLUTE MAN 0.26 K/mm3 (0.16-1.47); MONOCYTES PERCENT MAN 7 % (4-13); MYELOCYTE ABSOLUTE MAN 0.03 K/mm3 (0.00-0.00); MYELOCYTE PERCENT MAN 1 % (0-0); NEUTROPHILS ABSOLUTE MAN 2.68 K/mm3 (1.96-9.15); SEG NEUTROPHILS PERCENT MAN 58 % (41-73); TOTAL CELLS COUNTED 100
[2024-06-24 07:34] VITALS: BP 127/55
[2024-06-24] MEDS ORDERED: Protein Supplement 30 ML UD PO SCH (09:00)
--- NOTE | 2024-06-24 13:20 | NUR ---
ASSUMED CARE OF PT AT 0700 THIS AM. NO ACUTE NEEDS THIS AM. SEE DOCUMENTED ASSESSMENT AND VS. PT ABLE TO TAKE PO MEDICATIONS W/O DIFFICULTY. OOB TO CHAIR FOR LUNCH, + BM. PT IS ABLE TO USE CALL LIGHT AND MAKE NEEDS KNOWN. CHAIR LOCKED AND PT IN POSITION OF SAFETY WITH CALL LIGHT IN REACH. WILL CONTINUE TO MONITOR AND CONTACT PROVIDER NEEDED.
[2024-06-24 15:25] VITALS: BP 162/60
--- NOTE | 2024-06-24 17:32 | NUR ---
NO ACUTE CHANGES SINCE LAST NOTE. PT HAS BEEN RESTING IN BET DOING A CROSS WORD PUZZLE THIS AFTERNOON. PT HAS NO COMPLAINTS OR CONCERNS. PT AMBULATED IN ROOM W FWW AND GAIT BELT, RN STANDBY ASSIST ONLY. DRESSING HAS REMAINED C/D/I. SEE DOCUMENTED VS. PT IS ABLE TO MAKE NEEDS KNOWN AND USE CALL LIGHT. CALL LIGHT IN REACH AT THIS TIME. BED IN LOWEST, LOCKED POSITION. PT DENIES NEEDS AT THIS TIME. WILL CONTINUE TO MONITOR AND GIVE REPORT TO NOC SHIFT RN.
[2024-06-24 19:47] VITALS: BP 138/46
[2024-06-25 04:34] VITALS: BP 132/57
--- NOTE | 2024-06-25 05:47 | NUR ---
NOC SUMMARY- NO NEW ISSUES. PT HAS RESTED COMFORTABLY THROUGHOUT SHIFT. PT HAS BEEN VOIDING VIA URINAL. PT EATING SNACKS AND TAKING PO FLUIDS. PT CURRENTLY SLEEPING IN NO DISTRESS. CALL LIGHT IN REACH.
[2024-06-25 06:15] LABS: Hematocrit 28.7 % (37.0-53.0); Mean Corpuscular HGB 29.3 pg (26.0-34.0); Mean Corpuscular HGB Conc 31.4 g/dL (31.5-36.5); Mean Corpuscular Volume 94 fL (80-100); Red Blood Cell Count 3.07 M/mm3 (4.30-5.90); White Blood Cell Count 3.42 K/mm3 (4.00-11.30)
[2024-06-25 06:20] LABS: Platelet Count 17 K/mm3 (150-400)
[2024-06-25 06:57] LABS: BAND PERCENT MAN 37 % (0-8); BASOPHILS ABSOLUTE MAN 0.03 K/mm3 (0.00-0.23); BASOPHILS PERCENT MAN 1 % (0-2); EOSINOPHILS ABSOLUTE MAN 0.06 K/mm3 (0.00-0.68); EOSINOPHILS PERCENT MAN 2 % (0-6); LYMPHOCYTES ABSOLUTE MAN 0.23 K/mm3 (0.84-5.20); LYMPHOCYTES PERCENT MAN 7 % (21-46); METAMYELOCYTE ABSOLUTE MAN 0.03 K/mm3 (0.00-0.00); METAMYELOCYTE PERCENT MAN 1 % (0-0); MONOCYTES ABSOLUTE MAN 0.41 K/mm3 (0.16-1.47); MONOCYTES PERCENT MAN 12 % (4-13); MYELOCYTE ABSOLUTE MAN 0.03 K/mm3 (0.00-0.00); MYELOCYTE PERCENT MAN 1 % (0-0); NEUTROPHILS ABSOLUTE MAN 2.59 K/mm3 (1.96-9.15); SEG NEUTROPHILS PERCENT MAN 39 % (41-73); TOTAL CELLS COUNTED 100
[2024-06-25 06:59] LABS: Alanine Aminotransfer (ALT/SGP <6 U/L (12-78); Albumin, Blood 1.8 g/dL (3.4-5.0); Albumin/Globulin Ratio 0.4 (0.8-1.8); Alk Phos 80 U/L (50-136); Anion Gap 11 mmol/L (3-11); Aspartate Aminotrans (AST/SGOT 9 U/L (12-37); Bilirubin, Total 0.3 mg/dL (0.1-1.0); Blood Urea Nitrogen 18 mg/dL (8-24); Bun/Creatinine Ratio 16.5 (12.0-20.0); CO2, Blood 21 mmol/L (21-32); Calcium, Blood 7.6 mg/dL (8.5-10.1); Chloride, Blood 112 mmol/L (98-108); Creatinine, Blood 1.09 mg/dL (0.60-1.20); Globulin, Blood 4.2 g/dL (2.2-4.0); Glomerular Filtration Rate 68 (60-); Glucose, Blood 188 mg/dL (70-99); Potassium, Blood 3.9 mmol/L (3.5-5.5); Sodium, Blood 140 mmol/L (136-145)
[2024-06-25 07:29] VITALS: BP 102/45
[2024-06-25] MEDS ORDERED: Calcium Carbonate 500 MG Tab Chew PO SCH (08:30)
[2024-06-25] MEDS ORDERED: Calcium Carbon500 MG PO (12:40)
[2024-06-25 12:41] LABS: SARS-Cov-2 (COVID-19) PCR, MMC NEGATIVE (NEGATIVE)
[2024-06-25] MEDS ORDERED: CEFAZOLIN2 GM/50 M3 IV (12:41)
[2024-06-25] MEDS ORDERED: MOTION RELIEF25 MG PO (12:41)
[2024-06-25] MEDS ORDERED: LIQUICAL PLUS480 ML PO (12:43)
[2024-06-25] MEDS ORDERED: VISBIOME 112.51 EACH PO (12:44)
--- NOTE | 2024-06-25 14:09 | NUR ---
PT DISCHARGED TO [facility], TRANSPORT/WHEELCHAIR. 3 BAGS OF BELONGINGS SENT WITH PT AND CELL PHONE AND DENTURES. REPORT CALLED TO [facility] 1344. SENT HOME WITH LUCHO
== END 2024-06-25 14:14 | DRG 872 ==
LOC: ER 10:44 → MEDS 15:05 → ENPENDDIS 06-25 10:59 → MEDS 06-25 14:14
PROVIDERS: Internal Medicine; Student in an Organized Health Care Education/Training Program; ADMIT Internal Medicine
PROC: 3E03329 Introduction of Other Anti-infective into Peripheral Vein, Percutaneous Approach (ICD-10-PCS; 2024-06-19)
PROC: 0W980ZX Drainage of Chest Wall, Open Approach, Diagnostic (ICD-10-PCS; 2024-06-19)
PROC: 30233N1 Transfusion of Nonautologous Red Blood Cells into Peripheral Vein, Percutaneous Approach (ICD-10-PCS; principal; 2024-06-20)
DX: A41.01 Sepsis due to Methicillin susceptible Staphylococcus aureus (principal); L02.213 Cutaneous abscess of chest wall; N39.0 Urinary tract infection, site not specified; E87.1 Hypo-osmolality and hyponatremia; L02.415 Cutaneous abscess of right lower limb; E44.0 Moderate protein-calorie malnutrition; N17.9 Acute kidney failure, unspecified; D84.9 Immunodeficiency, unspecified; M79.662 Pain in left lower leg; M79.661 Pain in right lower leg; Z60.2 Problems related to living alone; I12.9 Hypertensive chronic kidney disease with stage 1 through stage 4 chronic kidney disease, or unspecified chronic kidney disease; N18.2 Chronic kidney disease, stage 2 (mild); K59.00 Constipation, unspecified; D69.59 Other secondary thrombocytopenia; L02.223 Furuncle of chest wall; E83.39 Other disorders of phosphorus metabolism; E83.51 Hypocalcemia; D63.1 Anemia in chronic kidney disease; E11.22 Type 2 diabetes mellitus with diabetic chronic kidney disease; D46.9 Myelodysplastic syndrome, unspecified; L30.9 Dermatitis, unspecified; D52.9 Folate deficiency anemia, unspecified; Z90.49 Acquired absence of other specified parts of digestive tract; Z98.890 Other specified postprocedural states; Z86.2 Personal history of diseases of the blood and blood-forming organs and certain disorders involving the immune mechanism; Z79.899 Other long term (current) drug therapy; Z79.52 Long term (current) use of systemic steroids; Z48.812 Encounter for surgical aftercare following surgery on the circulatory system; Z80.1 Family history of malignant neoplasm of trachea, bronchus and lung; Z68.22 Body mass index [BMI] 22.0-22.9, adult; Z87.891 Personal history of nicotine dependence
CPT/HCPCS: 10060; 36415; 36430; 71045; 73620; 80048; 80053; 80069; 80202; 81001; 82330; 82565; 82607; 82728; 82746; 82947; 83090; 83540; 83550; 83605; 83735; 83921; 84100; 84484; 85025; 86850; 86900; 86901; 86923; 87040; 87070; 87075; 87077; 87086; 87147; 87186; 87205; 93005; 93010; 93306; 96361-59; 96365-59; 96375-59; 97110; 97116; 97162; 97165; 97530; 97535; 99285-25; A9270; C1751; J0690; J0696; J1815; J2543; J3370; J7030; J7040; J7050; J7060; P9016; U0002

== ENCOUNTER 2024-06-29 17:03 | Emergency (ER) | payer BC ==
[~2024-06-29] VITALS: Ht 177.8 cm; Wt 71.7 kg
[~2024-06-29 17:03] MED LIST changes: +CEFAZOLIN2 GM/50 M3 IV; +Calcium Carbon500 MG PO; +LIQUICAL PLUS480 ML PO; +LOSA50 PO; +MOTION RELIEF25 MG PO; +PRED20 PO; +Prednisone10 MG PO; +SITA100T2 PO; +VISBIOME 112.51 EACH PO
[2024-06-29 17:32] VITALS: BP 115/68
== END 2024-06-29 21:12 | disposition home or self-care (01) ==
LOC: ER 17:03
DX: Z45.2 Encounter for adjustment and management of vascular access device (principal); I10 Essential (primary) hypertension; E11.9 Type 2 diabetes mellitus without complications; Z79.52 Long term (current) use of systemic steroids; Z79.84 Long term (current) use of oral hypoglycemic drugs; Z79.899 Other long term (current) drug therapy
CPT/HCPCS: 99281

== ENCOUNTER → 2024-07-26 | Outpatient (CLI) | payer OTHER ==
[2024-07-26 16:24] LABS: Hematocrit 20.2 % (37.0-53.0); Hemoglobin 6.2 g/dL (13.5-17.5); Mean Corpuscular HGB 30.4 pg (26.0-34.0); Mean Corpuscular HGB Conc 30.7 g/dL (31.5-36.5); Mean Corpuscular Volume 99 fL (80-100); RDW Coefficient Variation 22.5 % (11.7-14.2); RDW Standard Deviation 79.7 fL (35.1-46.3); Red Blood Cell Count 2.04 M/mm3 (4.30-5.90); White Blood Cell Count 4.08 K/mm3 (4.00-11.30)
[2024-07-26 16:37] LABS: Platelet Count 15 K/mm3 (150-400)
[2024-07-26 17:15] LABS: BAND PERCENT MAN 41 % (0-8); BASOPHILS ABSOLUTE MAN 0.08 K/mm3 (0.00-0.23); BASOPHILS PERCENT MAN 2 % (0-2); EOSINOPHILS ABSOLUTE MAN 0.24 K/mm3 (0.00-0.68); EOSINOPHILS PERCENT MAN 6 % (0-6); LYMPHOCYTES % ATYPICAL MANUAL 1 % (0-0); LYMPHOCYTES ABSOLUTE MAN 0.77 K/mm3 (0.84-5.20); LYMPHOCYTES PERCENT MAN 18 % (21-46); MONOCYTES ABSOLUTE MAN 0.28 K/mm3 (0.16-1.47); MONOCYTES PERCENT MAN 7 % (4-13); NEUTROPHILS ABSOLUTE MAN 2.69 K/mm3 (1.96-9.15); SEG NEUTROPHILS PERCENT MAN 25 % (41-73); TOTAL CELLS COUNTED 100
== END ==
LOC: LAB SHORT 15:48 → LAB 15:48
PROVIDERS: Internal Medicine Hematology & Oncology
DX: D46.9 Myelodysplastic syndrome, unspecified (principal)
CPT/HCPCS: 85025

== ENCOUNTER 2024-09-11 14:04 | Inpatient (IN) | payer OTHER ==
[~2024-09-11] VITALS: Ht 177.8 cm; Wt 64.3 kg
[2024-09-11 15:10] LABS: Hematocrit 19.8 % (37.0-53.0); Hemoglobin 6.1 g/dL (13.5-17.5); Mean Corpuscular HGB 30.7 pg (26.0-34.0); Mean Corpuscular HGB Conc 30.8 g/dL (31.5-36.5); Mean Corpuscular Volume 100 fL (80-100); RDW Coefficient Variation 22.1 % (11.7-14.2); RDW Standard Deviation 79.8 fL (35.1-46.3); Red Blood Cell Count 1.99 M/mm3 (4.30-5.90); White Blood Cell Count 6.84 K/mm3 (4.00-11.30)
[2024-09-11 15:27] LABS: Platelet Count 18 K/mm3 (150-400)
[2024-09-11 15:43] LABS: BAND PERCENT MAN 4 % (0-8); BASOPHILS ABSOLUTE MAN 0.06 K/mm3 (0.00-0.23); BASOPHILS PERCENT MAN 1 % (0-2); EOSINOPHILS PERCENT MAN 0 % (0-6); LYMPHOCYTES ABSOLUTE MAN 0.82 K/mm3 (0.84-5.20); LYMPHOCYTES PERCENT MAN 12 % (21-46); METAMYELOCYTE PERCENT MAN 3 % (0-0); MONOCYTES ABSOLUTE MAN 0.34 K/mm3 (0.16-1.47); MONOCYTES PERCENT MAN 5 % (4-13); NEUTROPHILS ABSOLUTE MAN 5.33 K/mm3 (1.96-9.15); PLASMA CELL ABSOLUTE MAN 0.06 K/mm3 (0.00-0.00); PLASMA CELLS PERCENT MAN 1 % (0-0); SEG NEUTROPHILS PERCENT MAN 74 % (41-73); TOTAL CELLS COUNTED 100
[2024-09-11 15:44] LABS: Albumin, Blood 2.1 g/dL (3.4-5.0); Albumin/Globulin Ratio 0.4 (0.8-1.8); Bilirubin, Total 0.8 mg/dL (0.1-1.0); Bun/Creatinine Ratio 22.5 (12.0-20.0); Calcium, Blood 8.2 mg/dL (8.5-10.1); Creatinine, Blood 1.78 mg/dL (0.60-1.20); Globulin, Blood 5.1 g/dL (2.2-4.0); Potassium, Blood 3.8 mmol/L (3.5-5.5); Total Protein, Blood 7.2 g/dL (6.4-8.2)
[2024-09-11 16:54] LABS: Source, Urine Straight Cath
[2024-09-11 17:02] LABS: Appearance, Urine Cloudy (Clear); Bilirubin, Urine Neg (Neg); Blood, Urine 4+ (Neg); Color, Urine Yellow (P-Yellow); Glucose Qualitative, Urine 1+ (Neg); Ketones, Urine Neg (Neg); Leukocyte Esterase, Urine 3+ (Neg); Nitrite, Urine Pos (Neg); Protein, Urine 3+ (Neg); Urobilinogen, Urine NORM (Normal)
[2024-09-11 17:13] LABS: Bacteria Mod /hpf; Squamous Epithelial Cells Not Seen /hpf (Few); White Blood Cells, Urine 25-50 /hpf (0-5)
[2024-09-11 17:18] LABS: International Normalized Ratio 1.4; Prothrombin Time Results 14.6 Sec (9.7-11.5)
[2024-09-11] MEDS ORDERED: CefTRIAXone Sodium 1,000 MG in NS 100 ML IV ONE (18:40)
[2024-09-11] MEDS ORDERED: Lactated Ringer's 1,000 ML IV SCH (22:00)
[2024-09-11] MEDS ORDERED: Ondansetron HCl 2 MG / ML 2ML Vial IV PRN (22:00)
[2024-09-11] MEDS ORDERED: FLU VACC TS2024-25(6MOS UP)/PF 45 MCG/0.5 ML SYRINGE IM ONE (22:00)
[2024-09-11] MEDS ORDERED: Acetaminophen 325 MG TABLET PO PRN (22:00)
[2024-09-11 23:13] VITALS: BP 139/84
[2024-09-12] MEDS ORDERED: Triamcinolone A15 G4 TOP (03:30)
[2024-09-12 03:59] LABS: Adenovirus F 40/41 Not Detected (NOT DETECT); Astrovirus Not Detected (NOT DETECT); Campylobacter Sp Not Detected (NOT DETECT); Cryptosporidium Not Detected (NOT DETECT); Cyclospora Cayetanensis Not Detected (NOT DETECT); E. Coli O157 Not Detected (NOT DETECT); Entamoeba Histolytica Not Detected (NOT DETECT); Enteroaggregative E. coli-EAEC Not Detected (NOT DETECT); Enteropathogenic E. coli-EPEC Not Detected (NOT DETECT); Enterotoxigenic E. coli-ETEC Not Detected (NOT DETECT); Giardia Lamblia Not Detected (NOT DETECT); Norovirus GI/GII Not Detected (NOT DETECT); Plesiomonas Shigelloides Not Detected (NOT DETECT); Rotavirus A Not Detected (NOT DETECT); Salmonella Sp Not Detected (NOT DETECT); Sapovirus Not Detected (NOT DETECT); Shiga Toxin-prod E. coli-STEC Not Detected (NOT DETECT); Shigella/Enteroin E. coli-EIEC Not Detected (NOT DETECT); Vibrio Cholerae Not Detected (NOT DETECT); Vibrio Sp Not Detected (NOT DETECT); Yersinia Enterocolitica Not Detected (NOT DETECT)
[2024-09-12 04:17] VITALS: BP 145/61
--- NOTE | 2024-09-12 04:41 | NUR ---
Shift Summary Pt admitted to this unit from ED where he was sent d/t increasing weakness and confusion. He lives alone and has a caregiver twice a week. Pt states he toilet has been clogged for two weeks and he has very little water pressure. ED reported pt was covered in feces and recived a bed bath while in ED. He rcvd 2 units of PRBC in ED as his Hgb was 6.1. He has been having diahhrea for two weeks, I got a stool sample and sent it to the lab and he tested positive for CDIFF, A&B toxins are pending. Pt has been in enteric isolation since arriving to the unit. He can normally walk at baseline but is feeling very week and has been on bedrest this shift. He is AOx4, continent voids and BMs. He had one very small loose BM on the bedpan.
[2024-09-12] MEDS ORDERED: Meclizine HCl 25 MG Tab PO PRN (06:00)
[2024-09-12 06:02] LABS: Hematocrit 25.2 % (37.0-53.0); Hemoglobin 8.2 g/dL (13.5-17.5); Mean Corpuscular HGB 30.8 pg (26.0-34.0); Mean Corpuscular HGB Conc 32.5 g/dL (31.5-36.5); RDW Coefficient Variation 21.2 % (11.7-14.2); RDW Standard Deviation 72.6 fL (35.1-46.3); Red Blood Cell Count 2.66 M/mm3 (4.30-5.90); White Blood Cell Count 6.16 K/mm3 (4.00-11.30)
[2024-09-12 06:08] LABS: Mean Corpuscular Volume 95 fL (80-100)
[2024-09-12 06:10] LABS: Platelet Count 17 K/mm3 (150-400)
[2024-09-12 06:24] LABS: BAND PERCENT MAN 28 % (0-8); BASOPHILS ABSOLUTE MAN 0.06 K/mm3 (0.00-0.23); BASOPHILS PERCENT MAN 1 % (0-2); EOSINOPHILS PERCENT MAN 0 % (0-6); LYMPHOCYTES ABSOLUTE MAN 0.92 K/mm3 (0.84-5.20); LYMPHOCYTES PERCENT MAN 15 % (21-46); MONOCYTES PERCENT MAN 5 % (4-13); NEUTROPHILS ABSOLUTE MAN 4.86 K/mm3 (1.96-9.15); SEG NEUTROPHILS PERCENT MAN 51 % (41-73); TOTAL CELLS COUNTED 100
[2024-09-12 06:25] LABS: Magnesium, Blood 1.9 mg/dL (1.6-2.4)
[2024-09-12 06:32] LABS: Alanine Aminotransfer (ALT/SGP <6 U/L (12-78); Albumin, Blood 2.1 g/dL (3.4-5.0); Albumin/Globulin Ratio 0.4 (0.8-1.8); Alk Phos 64 U/L (50-136); Anion Gap 11 mmol/L (3-11); Aspartate Aminotrans (AST/SGOT 5 U/L (12-37); Bilirubin, Total 0.9 mg/dL (0.1-1.0); Blood Urea Nitrogen 35 mg/dL (8-24); Bun/Creatinine Ratio 22.3 (12.0-20.0); CO2, Blood 20 mmol/L (21-32); Calcium, Blood 8.4 mg/dL (8.5-10.1); Chloride, Blood 108 mmol/L (98-108); Creatinine, Blood 1.57 mg/dL (0.60-1.20); Globulin, Blood 4.9 g/dL (2.2-4.0); Glomerular Filtration Rate 44 (60-); Glucose, Blood 185 mg/dL (70-99); Potassium, Blood 3.8 mmol/L (3.5-5.5); Sodium, Blood 135 mmol/L (136-145)
[2024-09-12 08:05] VITALS: BP 131/52
[2024-09-12] MEDS ORDERED: Calcium Carbonate 500 MG Tab Chew PO SCH (09:00)
[2024-09-12] MEDS ORDERED: Saxagliptin HCl 2.5 MG TABLET PO SCH (09:00)
[2024-09-12] MEDS ORDERED: Lactobacil 2-S.Thermo-Bifido 1 1 Cap PO SCH (09:00)
[2024-09-12] MEDS ORDERED: Misc. Oral Solution PO SCH (09:00)
[2024-09-12] MEDS ORDERED: Triamcinolone acet. 0.5% Ointment 15 gm TOP SCH (09:00)
[2024-09-12] MEDS ORDERED: Vancomycin HCl 125 MG Cap PO SCH (10:00)
[2024-09-12 16:02] VITALS: BP 130/63
[2024-09-12] MEDS ORDERED: CefTRIAXone Sodium 1,000 MG in NS 100 ML IV SCH (18:00)
--- NOTE | 2024-09-12 19:47 | NUR ---
SHIFT SUMMARY PATIENT WITH NO ACUTE EVENTS DURING SHIFT. HE IS UP TO BATHROOM WITH FWW AND 1 PRSON ASSISTX2. 2 SMALL BM TODAY. TOLERATING DIET. DENIES ANY PAIN EXCEPT WITH DRESSING CHANGE TO LEFT LE. HEIS ORIENTED TO SELF, SITUATION AND LOCATION VERY HARD OF HEARING AND DIFFICULTY WITH VISION DUE TO CATARACTS AND ASTIGMATISM. BED IN LOW POSITION, CALL LIGHT IN REACH. PATIENT USES CALL LIGHT APPROPRIATELY.
[2024-09-12 20:51] VITALS: BP 127/63
[2024-09-13 04:02] VITALS: BP 128/63
[2024-09-13 06:16] LABS: Hematocrit 25.5 % (37.0-53.0); Hemoglobin 8.2 g/dL (13.5-17.5); Mean Corpuscular HGB 30.5 pg (26.0-34.0); Mean Corpuscular HGB Conc 32.2 g/dL (31.5-36.5); Mean Corpuscular Volume 95 fL (80-100); RDW Standard Deviation 71.6 fL (35.1-46.3); Red Blood Cell Count 2.69 M/mm3 (4.30-5.90); White Blood Cell Count 6.63 K/mm3 (4.00-11.30)
[2024-09-13 06:22] LABS: Platelet Count 17 K/mm3 (150-400)
--- NOTE | 2024-09-13 06:27 | NUR ---
SHIFT SUMMARY: Pt is admitted for acute renal insufficiency and is a full code. Is alert and able to make needs known. ADLs have been SBA. in on contact ISO for c-diff. Denies pain or discomfort when asked.
[2024-09-13 06:30] LABS: Bun/Creatinine Ratio 25.7 (12.0-20.0); Calcium, Blood 8.8 mg/dL (8.5-10.1); Creatinine, Blood 1.4 mg/dL (0.60-1.20); Potassium, Blood 3.7 mmol/L (3.5-5.5)
[2024-09-13 06:43] LABS: BAND PERCENT MAN 9 % (0-8); BASOPHILS PERCENT MAN 0 % (0-2); EOSINOPHILS ABSOLUTE MAN 0.06 K/mm3 (0.00-0.68); EOSINOPHILS PERCENT MAN 1 % (0-6); LYMPHOCYTES ABSOLUTE MAN 0.59 K/mm3 (0.84-5.20); LYMPHOCYTES PERCENT MAN 9 % (21-46); MONOCYTES ABSOLUTE MAN 0.86 K/mm3 (0.16-1.47); MONOCYTES PERCENT MAN 13 % (4-13); SEG NEUTROPHILS PERCENT MAN 68 % (41-73); TOTAL CELLS COUNTED 100
[2024-09-13] MEDS ORDERED: Insulin Human Lispro 100 Units/ML 3ML Syringe SC SCH (07:30)
[2024-09-13 07:48] VITALS: BP 122/54
[2024-09-13] MEDS ORDERED: Saxagliptin HCl 2.5 MG TABLET PO SCH (09:00)
--- NOTE | 2024-09-13 12:28 | NUR ---
MET WITH PATIENT AND FAMILY, GOPI (DAUGHTER), AND KAMARI (GRANDDAUGHTER). PATIENT IS ALERT AND PARTICIPATING IN CONVERSATION. WE DISCUSSED CODE STATUS AND FILLED OUT A POLST. PATIENT DOES NOT WANT HEROIC MEASURES TAKEN TO BRING HIM BACK IF HIS HEART STOPS. HE CHOSE DNR ON HIS POLST. WE REVIEWED THE OPTION FOR MEDICAL INTERVENTIONS. COMFORT, SELECTIVE, OR FULL TREATMENT. REBECCA DOES NOT WANT TO BE INTUBATED. WE DISCUSSED DIFFERENT CIRCUMSTANCES THAT INTUBATION MAY OCCUR. HE CHOSE SELECTIVE TREATMENT. POLST SIGNED BY PROVIDER COPIES MADE, SENT TO OR POLST REGISTRY. CODE STATUS CHANGED.
[2024-09-13 16:05] VITALS: BP 134/67
--- NOTE | 2024-09-13 16:43 | NUR ---
PT PLEASANT AND COOP TODAY. SOME SLOW TO RESPOND, HOWEVER COULD BE RELATED TO VERY POOR HEARING. A/O X3. LUNGS CLEAR, RESP EASY, UNLABORED. ON RA. H/R REG, NO MURMUR NOTED. NO TELE. NO EDEMA NOTED. FAMILY IN TO VISIT TODAY. PALIATIVE CARE ALSO. MOVING PT TO DNR. CONTINUES TO TRANSFER TO BATHROOM, SBA. NO FURTHER CONCERNS NOTED. BED IN LOW POSITION, CALL LITE IN REACH, CALLS APPROP
--- NOTE | 2024-09-13 17:34 | NUR ---
DISCUSSED CASE WITH PROVIDER. POLST COMPLETED, SENT TO REGISTRY.
--- NOTE | 2024-09-13 18:20 | NUR ---
PT HAS TEETH BROUGHT IN. OKAY TO EAT CONST CARB DIET EATS AT HOME. MOVRC FROM [id number]
[2024-09-13 22:47] VITALS: BP 129/66
[2024-09-14 04:50] VITALS: BP 129/66
[2024-09-14 06:07] LABS: Hematocrit 26.1 % (37.0-53.0); Hemoglobin 8.3 g/dL (13.5-17.5); Mean Corpuscular HGB 30.6 pg (26.0-34.0); Mean Corpuscular HGB Conc 31.8 g/dL (31.5-36.5); Mean Corpuscular Volume 96 fL (80-100); RDW Coefficient Variation 20.6 % (11.7-14.2); RDW Standard Deviation 72.2 fL (35.1-46.3); Red Blood Cell Count 2.71 M/mm3 (4.30-5.90); White Blood Cell Count 5.59 K/mm3 (4.00-11.30)
[2024-09-14 06:15] LABS: Platelet Count 17 K/mm3 (150-400)
[2024-09-14 06:35] LABS: Bun/Creatinine Ratio 27.5 (12.0-20.0); Calcium, Blood 8.9 mg/dL (8.5-10.1); Creatinine, Blood 1.31 mg/dL (0.60-1.20); Potassium, Blood 3.8 mmol/L (3.5-5.5)
[2024-09-14 06:50] LABS: BAND PERCENT MAN 14 % (0-8); BASOPHILS ABSOLUTE MAN 0.11 K/mm3 (0.00-0.23); BASOPHILS PERCENT MAN 2 % (0-2); EOSINOPHILS PERCENT MAN 0 % (0-6); LYMPHOCYTES ABSOLUTE MAN 0.67 K/mm3 (0.84-5.20); LYMPHOCYTES PERCENT MAN 12 % (21-46); METAMYELOCYTE ABSOLUTE MAN 0.05 K/mm3 (0.00-0.00); METAMYELOCYTE PERCENT MAN 1 % (0-0); MONOCYTES ABSOLUTE MAN 0.27 K/mm3 (0.16-1.47); MONOCYTES PERCENT MAN 5 % (4-13); NEUTROPHILS ABSOLUTE MAN 4.47 K/mm3 (1.96-9.15); SEG NEUTROPHILS PERCENT MAN 66 % (41-73); TOTAL CELLS COUNTED 100
--- NOTE | 2024-09-14 07:13 | NUR ---
SHIFT SUMMARY PT SLEEPING WELL THROUGH NIGHT. WAKING FOR MEDICATION ADMINISTRATION AND TO USE RESTROOM. PT AMBULATED WELL ON HIS OWN WITH THIS RN ON STANDBY FOR SAFETY. PT LAYING BACK IN BED, GOING TO SLEEP. BED ALARM ON FOR SAFETY AND CALL LIGHT IN REACH. HE HAS BEEN PLEASANT AND COOPERATIVE WITH CARE.
[2024-09-14 07:58] VITALS: BP 117/60
[2024-09-14] MEDS ORDERED: VISBIOME 112.51 EACH PO (14:54)
[2024-09-14] MEDS ORDERED: VANCOCIN HCL125 MG PO (14:54)
[2024-09-14] MEDS ORDERED: BACTRIM DS TAB1 EAC6 PO (14:54)
--- NOTE | 2024-09-14 15:29 | NUR ---
DISCHARGE REVIEWED WITH PT . PT VERBALIZED UNDERSTANDING MEDS AND INST. IV REMOVED BY AIDE. NO TELE. PT DRESSED AND READY TO [facility].
--- NOTE | 2024-09-14 16:26 | NUR ---
PT TRANSPORT HERE. PT WHEELED TO DOOR AT 3028
== END 2024-09-14 17:09 | disposition home health service (06) | DRG 682 ==
LOC: ER 14:04 → MEDS 14:05 → ERHOLD 14:05 → MEDS 23:01
PROVIDERS: Student in an Organized Health Care Education/Training Program; ADMIT Student in an Organized Health Care Education/Training Program
PROC: 30233N1 Transfusion of Nonautologous Red Blood Cells into Peripheral Vein, Percutaneous Approach (ICD-10-PCS; principal; 2024-09-11)
DX: N17.9 Acute kidney failure, unspecified (principal); G92.8 Other toxic encephalopathy; N39.0 Urinary tract infection, site not specified; N18.2 Chronic kidney disease, stage 2 (mild); R19.7 Diarrhea, unspecified; E11.22 Type 2 diabetes mellitus with diabetic chronic kidney disease; D46.9 Myelodysplastic syndrome, unspecified; B95.62 Methicillin resistant Staphylococcus aureus infection as the cause of diseases classified elsewhere; Z66 Do not resuscitate; I12.9 Hypertensive chronic kidney disease with stage 1 through stage 4 chronic kidney disease, or unspecified chronic kidney disease; D69.59 Other secondary thrombocytopenia; R62.7 Adult failure to thrive; Z68.21 Body mass index [BMI] 21.0-21.9, adult; Z79.52 Long term (current) use of systemic steroids
CPT/HCPCS: 36415; 36430; 70450; 80048; 80053; 81001; 82140; 82947; 83735; 83880; 84484; 85025; 85610; 86850; 86900; 86901; 86923; 87077; 87086; 87147; 87186; 87324; 87507; 93005; 93010; 96365; 97110; 97162; 97165; 97530; 97535; 99285-25; A9270; G0378; J0696; J7120; P9016

== ENCOUNTER 2024-10-09 16:05 | Inpatient (IN) | payer OTHER, MEDICARE ==
[~2024-10-09] VITALS: Ht 177.8 cm; Wt 62.5 kg
[~2024-10-09 16:05] MED LIST changes: +BACTRIM DS TAB1 EAC6 PO; +Triamcinolone A15 G4 TOP; +VANCOCIN HCL125 MG PO
[2024-10-09 16:32] LABS: Hematocrit 19.6 % (37.0-53.0); Hemoglobin 6.2 g/dL (13.5-17.5); Mean Corpuscular HGB Conc 31.6 g/dL (31.5-36.5); Mean Corpuscular Volume 95 fL (80-100); RDW Coefficient Variation 19.4 % (11.7-14.2); RDW Standard Deviation 66.7 fL (35.1-46.3); Red Blood Cell Count 2.07 M/mm3 (4.30-5.90); White Blood Cell Count 4.98 K/mm3 (4.00-11.30)
[2024-10-09 16:40] LABS: Albumin, Blood 2.3 g/dL (3.4-5.0); Albumin/Globulin Ratio 0.5 (0.8-1.8); Bilirubin, Total 0.6 mg/dL (0.1-1.0); Bun/Creatinine Ratio 23.7 (12.0-20.0); Calcium, Blood 8.3 mg/dL (8.5-10.1); Creatinine, Blood 1.9 mg/dL (0.60-1.20); Globulin, Blood 5.1 g/dL (2.2-4.0); Magnesium, Blood 1.6 mg/dL (1.6-2.4); Platelet Count 8 K/mm3 (150-400); Potassium, Blood 4.3 mmol/L (3.5-5.5); Total Protein, Blood 7.4 g/dL (6.4-8.2)
[2024-10-09 17:07] LABS: BAND PERCENT MAN 11 % (0-8); BASOPHILS ABSOLUTE MAN 0.14 K/mm3 (0.00-0.23); BASOPHILS PERCENT MAN 3 % (0-2); EOSINOPHILS ABSOLUTE MAN 0.19 K/mm3 (0.00-0.68); EOSINOPHILS PERCENT MAN 4 % (0-6); LYMPHOCYTES ABSOLUTE MAN 0.94 K/mm3 (0.84-5.20); LYMPHOCYTES PERCENT MAN 19 % (21-46); MONOCYTES ABSOLUTE MAN 0.29 K/mm3 (0.16-1.47); MONOCYTES PERCENT MAN 6 % (4-13); MYELOCYTE ABSOLUTE MAN 0.09 K/mm3 (0.00-0.00); MYELOCYTE PERCENT MAN 2 % (0-0); NEUTROPHILS ABSOLUTE MAN 3.28 K/mm3 (1.96-9.15); SEG NEUTROPHILS PERCENT MAN 55 % (41-73); TOTAL CELLS COUNTED 100
[2024-10-09] MEDS ORDERED: NS 1,000 ML IV ONE (17:26)
[2024-10-09] MEDS ORDERED: Ondansetron HCl 2 MG / ML 2ML Vial IV PRN (18:45)
[2024-10-09 20:06] LABS: International Normalized Ratio 1.07; Prothrombin Time Results 11.4 Sec (9.7-11.5)
[2024-10-09] MEDS ORDERED: Insulin Human Lispro 100 Units/ML 3ML Syringe SC SCH (21:00)
[2024-10-09 21:16] VITALS: BP 144/62
[2024-10-09 21:30] VITALS: BP 123/67
[2024-10-09] MEDS ORDERED: NS 250 ML IV PRN (22:10)
[2024-10-09 22:30] VITALS: BP 132/80
[2024-10-09] MEDS ORDERED: PRAX237 ML TOP (22:47)
[2024-10-09 22:49] VITALS: BP 117/64
[2024-10-09] MEDS ORDERED: EUCERIN ADVANC454 GM TOP (22:51)
[2024-10-09] MEDS ORDERED: DOCU100 PO (22:53)
[2024-10-09] MEDS ORDERED: THERA-D2000 UNIT PO (22:58)
[2024-10-09] MEDS ORDERED: Vitamin B-12100 MCG PO (22:58)
[2024-10-09] MEDS ORDERED: DUPIXENT P300 MG/2 M SC (23:32)
[2024-10-09] MEDS ORDERED: VANCOCIN HCL125 MG PO (23:34)
[2024-10-09 23:40] VITALS: BP 133/62
[2024-10-10] VITALS (7 sets, daily range): BP systolic 103–140; BP diastolic 50–87
[2024-10-10] MEDS ORDERED: Acetaminophen 325 MG TABLET PO PRN (00:25)
[2024-10-10 00:34] LABS: Hematocrit 22.8 % (37.0-53.0); Hemoglobin 7.4 g/dL (13.5-17.5); Mean Corpuscular HGB 29.1 pg (26.0-34.0); Mean Corpuscular HGB Conc 32.5 g/dL (31.5-36.5); Mean Platelet Volume 10.3 fL (9.1-12.4); RDW Coefficient Variation 21.5 % (11.7-14.2); RDW Standard Deviation 69.3 fL (35.1-46.3); Red Blood Cell Count 2.54 M/mm3 (4.30-5.90); White Blood Cell Count 5.13 K/mm3 (4.00-11.30)
[2024-10-10 00:36] LABS: Mean Corpuscular Volume 90 fL (80-100)
[2024-10-10 00:38] LABS: Platelet Count 36 K/mm3 (150-400)
[2024-10-10 00:58] LABS: BAND PERCENT MAN 23 % (0-8); BASOPHILS ABSOLUTE MAN 0.05 K/mm3 (0.00-0.23); BASOPHILS PERCENT MAN 1 % (0-2); EOSINOPHILS ABSOLUTE MAN 0.05 K/mm3 (0.00-0.68); EOSINOPHILS PERCENT MAN 1 % (0-6); LYMPHOCYTES ABSOLUTE MAN 0.56 K/mm3 (0.84-5.20); LYMPHOCYTES PERCENT MAN 11 % (21-46); MONOCYTES ABSOLUTE MAN 0.66 K/mm3 (0.16-1.47); MONOCYTES PERCENT MAN 13 % (4-13); NEUTROPHILS ABSOLUTE MAN 3.79 K/mm3 (1.96-9.15); SEG NEUTROPHILS PERCENT MAN 51 % (41-73); TOTAL CELLS COUNTED 100
[2024-10-10 03:47] LABS: Hematocrit 23.3 % (37.0-53.0); Hemoglobin 7.5 g/dL (13.5-17.5); Mean Corpuscular HGB 28.7 pg (26.0-34.0); Mean Corpuscular HGB Conc 32.2 g/dL (31.5-36.5); Mean Corpuscular Volume 89 fL (80-100); Mean Platelet Volume 9.7 fL (9.1-12.4); RDW Coefficient Variation 21.3 % (11.7-14.2); RDW Standard Deviation 68.8 fL (35.1-46.3); Red Blood Cell Count 2.61 M/mm3 (4.30-5.90); White Blood Cell Count 5.02 K/mm3 (4.00-11.30)
[2024-10-10 03:54] LABS: Platelet Count 35 K/mm3 (150-400)
[2024-10-10 04:15] LABS: Bun/Creatinine Ratio 24.1 (12.0-20.0); Calcium, Blood 8.3 mg/dL (8.5-10.1); Creatinine, Blood 1.74 mg/dL (0.60-1.20); Potassium, Blood 4.1 mmol/L (3.5-5.5)
--- NOTE | 2024-10-10 05:49 | NUR ---
SHIFT SUMMARY REPORTS RECEIVED BY THIS RN FROM INSPECTOR MACHINE CUT GLASSADRIANA. PT ARRIVED FROM THE ED @ APPROX 2052, WAS SLID OVER BY MEDICAL STAFF AND PT REPORTS THAT HE FEELS UNABLE TO STAND AND TRANSFER TO THE BED PT IS A&O X4, ABLE TO MAKE NEEDS KNOWN, OBEYS COMMANDS, HOLDING APPROPRIATE CONVERSATION, BED REST AT THIS TIME, MOVING ALL EXTREMITES EQUALLY WITH PURPOSE, PT IS DEAF IN THE RIGHT EAR AND HAS A HEARING AID IN THE LEFT, TMAX 102.6. CONTINUOUS SPO2, SPO2 GREATER THAN 90% ON RA, NO SIGNS OF RESPIRATORY DISTRESS OBSERVED BY THIS RN. CONTINUOUS TELE MONITORING, PT SINUS RHYTHM 60 S, BP STABLE WITH MAP GREATER THAN 65, PT DENIES CHEST P/P T/O THIS SHIFT, PULSES PRESENT T/O. BOWEL TONES PRESENT IN ALL 4Q, PT HAD INCONTINET EPISODE OF LIQUID BROWN STOOL, REPORTS THAT BASELINE HE IS CONTINENT AND ABLE TO GO TO THE BATHROOM. PT USING URINAL WITH ASSISTANCE. PT RECIVED 1 PACK OF PLATLETS UPON ARRIVAL TO THE UNIT 10/09 AND ONE UNIT OF BLOOD IN THE ER 10/09. BED LOWEST POSITION, CALL LIGHT IN REACH, AWAITING TO GIVE REPORT TO ONCOMING RN.
[2024-10-10 11:39] LABS: Source, Urine Clean Catch
[2024-10-10 11:42] LABS: Appearance, Urine Hazy (Clear); Bilirubin, Urine Neg (Neg); Blood, Urine 5+ (Neg); Color, Urine Yellow (P-Yellow); Glucose Qualitative, Urine 1+ (Neg); Ketones, Urine Neg (Neg); Leukocyte Esterase, Urine 3+ (Neg); Nitrite, Urine Pos (Neg); Protein, Urine 3+ (Neg); Specific Gravity, Urine 1.015 (1.003-1.022); Urobilinogen, Urine NORM (Normal)
[2024-10-10 11:43] LABS: CORONAVIRUS COVID-19 AG Negative (NEGATIVE); INFLUENZA A AG Negative (NEGATIVE); INFLUENZA B AG Negative (NEGATIVE)
[2024-10-10 11:56] LABS: White Blood Cells, Urine TNTC /hpf (0-5)
[2024-10-10 11:57] LABS: Bacteria Few /hpf; Squamous Epithelial Cells Few /hpf (Few)
[2024-10-10] MEDS ORDERED: Vancomycin HCL 1,250 MG in NS 250 ML IV ONE (12:25)
[2024-10-10] MEDS ORDERED: Lactated Ringer's 1,000 ML IV SCH (12:30)
[2024-10-10] MEDS ORDERED: Cefepime HCl 1,000 MG in NS 100 ML IV SCH (13:00)
[2024-10-10] MEDS ORDERED: Insulin Human Lispro 100 Units/ML 3ML Syringe SC SCH (16:30)
--- NOTE | 2024-10-10 17:53 | NUR ---
SHIFT SUMMARY PT A/OX4 AND COOPERATIVE OF CARE. PT ABLE TO EXPRESS NEEDS AND CALLS APPROPIATE. PT DEAF IN RIGHT EAR AND EXTREMELY [place] IN LEFT. PT EXPRESSED FRUSTRATION THIS MORNING DUE TO LACK OF SLEEP AND THE FREQUENT BLOOD DRAWS AND VITALS. PT EDUCATED ON THE IMPORTANCE OF CLOSE MONITORING AND THE PLAN OF CARE, PT MORE AGREEABLE WITH CARE. PT RUNNING LOW GRADE FEVER THIS SHIFT. OTHER VSS THROUGHOUT SHIFT WITH O2 SATS IN THE 90'S ON RA. NO REPORT OF CHEST PAIN/PRESSURE THROUGHOUT SHIFT. NO REPORT OF SOB/DYSPNEA THORUGHOUT SHIFT. PT STARTED ON IV ABX PER ORDERS. PT DAUGHTER AND ASSISTED LIVING UPDATED TODAY. PT NOT EATING MUCH, PT REPORTED DUE TO HIS DIARRHEA. PT EXPRESSED PAIN TO HIS LEFT LEG WOUND, STATED IT HURTS WHEN IT IS TOUCHED. PT HAD MULTIPLE BOUTS OF DIARRHEA, SAMPLE COLLECTED AND SENT.
[2024-10-10 18:37] LABS: Yersinia Enterocolitica Detected (NOT DETECT)
[2024-10-10 18:38] LABS: Adenovirus F 40/41 Not Detected (NOT DETECT); Astrovirus Not Detected (NOT DETECT); Campylobacter Sp Not Detected (NOT DETECT); Cryptosporidium Not Detected (NOT DETECT); Cyclospora Cayetanensis Not Detected (NOT DETECT); E. Coli O157 Not Detected (NOT DETECT); Entamoeba Histolytica Not Detected (NOT DETECT); Enteroaggregative E. coli-EAEC Not Detected (NOT DETECT); Enteropathogenic E. coli-EPEC Not Detected (NOT DETECT); Enterotoxigenic E. coli-ETEC Not Detected (NOT DETECT); Giardia Lamblia Not Detected (NOT DETECT); Norovirus GI/GII Not Detected (NOT DETECT); Plesiomonas Shigelloides Not Detected (NOT DETECT); Rotavirus A Not Detected (NOT DETECT); Salmonella Sp Not Detected (NOT DETECT); Sapovirus Not Detected (NOT DETECT); Shiga Toxin-prod E. coli-STEC Not Detected (NOT DETECT); Shigella/Enteroin E. coli-EIEC Not Detected (NOT DETECT); Vibrio Cholerae Not Detected (NOT DETECT); Vibrio Sp Not Detected (NOT DETECT)
[2024-10-10] MEDS ORDERED: CefTRIAXone Sodium 2,000 MG in NS 100 ML IV SCH (21:00)
[2024-10-11] VITALS: BP 116/58
[2024-10-11 03:43] LABS: Hematocrit 21.9 % (37.0-53.0); Hemoglobin 7.3 g/dL (13.5-17.5); Mean Corpuscular HGB 29.9 pg (26.0-34.0); Mean Corpuscular HGB Conc 33.3 g/dL (31.5-36.5); Mean Corpuscular Volume 90 fL (80-100); RDW Standard Deviation 68.3 fL (35.1-46.3); Red Blood Cell Count 2.44 M/mm3 (4.30-5.90); White Blood Cell Count 4.91 K/mm3 (4.00-11.30)
[2024-10-11 03:51] LABS: Platelet Count 25 K/mm3 (150-400)
[2024-10-11 04:00] VITALS: BP 121/55
[2024-10-11 04:05] LABS: Alanine Aminotransfer (ALT/SGP <6 U/L (12-78); Albumin, Blood 2.1 g/dL (3.4-5.0); Albumin/Globulin Ratio 0.4 (0.8-1.8); Alk Phos 58 U/L (50-136); Anion Gap 11 mmol/L (3-11); Aspartate Aminotrans (AST/SGOT 8 U/L (12-37); Bilirubin, Total 0.4 mg/dL (0.1-1.0); Blood Urea Nitrogen 45 mg/dL (8-24); Bun/Creatinine Ratio 24.3 (12.0-20.0); CO2, Blood 20 mmol/L (21-32); Chloride, Blood 106 mmol/L (98-108); Creatinine, Blood 1.85 mg/dL (0.60-1.20); Globulin, Blood 4.9 g/dL (2.2-4.0); Glomerular Filtration Rate 36 (60-); Glucose, Blood 159 mg/dL (70-99); Potassium, Blood 3.8 mmol/L (3.5-5.5); Sodium, Blood 133 mmol/L (136-145); Vancomycin, Random 11.9 ug/mL
[2024-10-11 04:11] LABS: BAND PERCENT MAN 19 % (0-8); BASOPHILS PERCENT MAN 0 % (0-2); EOSINOPHILS ABSOLUTE MAN 0.04 K/mm3 (0.00-0.68); EOSINOPHILS PERCENT MAN 1 % (0-6); LYMPHOCYTES ABSOLUTE MAN 0.19 K/mm3 (0.84-5.20); LYMPHOCYTES PERCENT MAN 4 % (21-46); MONOCYTES ABSOLUTE MAN 0.44 K/mm3 (0.16-1.47); MONOCYTES PERCENT MAN 9 % (4-13); NEUTROPHILS ABSOLUTE MAN 4.22 K/mm3 (1.96-9.15); SEG NEUTROPHILS PERCENT MAN 67 % (41-73); TOTAL CELLS COUNTED 100
--- NOTE | 2024-10-11 05:51 | NUR ---
SHIFT SUMMARY PT HAS TOLERATED SHIFT WELL WITH NO CHANGE IN STATUS. AT 0540, THIS NURSE WAS NOTIFIED BY CHAIN MAKER MACHINE THAT WAS ASSISTING PT WITH LINEN CHANGE AFTER BOWEL MOVEMENT THAT PT STATED "I DON'T WANT TO BE ALIVE." THIS NURSE IMMEDIATELY ENTERED ROOM TO ASK PT ABOUT WHAT CHAIN MAKER MACHINE REPORTED. PT STATES THAT HE FEELS LIKE HE IS DYING RIGHT NOW. THIS NURSE ASKED PT IF HE HAS THOUGHTS OF HARMING HIMSELF, PT STATES "NO." WHEN ASKED IF HE HAS ANY THOUGHTS OF SUICIDE, PT STATES "NO." WHEN ASKED WHAT HE MAY HAVE MEANT WHEN CHAIN MAKER MACHINE HEARD THIS, PT STATES, "I JUST FEEL LIKE I'M DYING BECAUSE I'M SICK AND I DON'T KNOW WHATS GOING ON." THIS NURSE SPENT APPROXIMATELY TEN MINUTES IN ROOM REASSURING PT, AFTER WHICH POINT PT APPEARS TO BE IN BETTER MOOD AND UNDERSTANDS MORE ABOUT HIS CURRENT SITUATION. PT HAS OTHERWISE HAD NO SIGNIFICANT EVENTS THROUGHOUT THE NIGHT. WILL CONTINUE TO MONITOR UNTIL REPORT PASSED TO DAY SHIFT TEAM.
[2024-10-11 07:29] VITALS: BP 112/56
[2024-10-11] MEDS ORDERED: NS 1,000 ML IV SCH ×4 (08:00→21:00)
[2024-10-11] MEDS ORDERED: Vancomycin HCL 1,000 MG in NS 250 ML IV ONE (08:00)
[2024-10-11] MEDS ORDERED: Lactobacil 2-S.Thermo-Bifido 1 1 Cap PO SCH (09:00)
[2024-10-11 11:44] VITALS: BP 101/52
[2024-10-11] MEDS ORDERED: GENTAMICIN SULFATE IV SCH (12:00)
[2024-10-11] MEDS ORDERED: NS IV SCH (12:00)
[2024-10-11] MEDS ORDERED: Lidocaine 2% Jelly Uro-Jet UR ONE (12:45)
[2024-10-11 15:24] VITALS: BP 112/57
[2024-10-11] MEDS ORDERED: Fidaxomicin 200 MG Tab PO SCH (19:00)
--- NOTE | 2024-10-11 19:21 | NUR ---
SHIFT SUMMARY PT ALERT, ORIENTED X4; CALM AND COOPERATIVE WITH CARE. NEW [place] EVEN WITH HEARING AIDS. PT REPORTS LOWER ADB PAIN. ABD FIRM, TENDER; BLADDER SCAN SHOWING >1229; DR FUNEZ NOTIFIED, NEW ORDERS FOR STRAIGHT CATH WITH UROJET, 1700+ OUT, TURBID YELLOW URINE. NEXT BLADDER SCAN AT 1800 >400CC, NEW ORDERS FOR INDWELLING CATHETER. PT HAVING MULTIPLE BOUTS OF DIARRHEA T/O SHIFT. TELE SINUS 70-80'S, BP STABLE. SPO2 >90% ON RA, BREATHING EVEN AND UNLABORED. NO EDEMA NOTED. NO OTHER ACUTE CHANGES NOTED. REPORT GIVEN TO ONCOMING RN.
--- NOTE | 2024-10-11 19:33 | NUR ---
STRAIGHT CATH PLACEMENT THIS AM, PT WAS REPORTING SEVERE PAIN DURING INSERTION, STOPPED AND USED UROJET FOR INITIAL STRAIGHT CATH. THIS EVENING PT RETAINING AGAIN, NOTIFIED DR FUNEZ, NEW ORDERS TO PLACE MAYBERRY CATHETER DUE TO TRAMATIC STRAIGHT CATH EARLIER IN SHIFT.
[2024-10-11] MEDS ORDERED: Lidocaine 2% Jelly Uro-Jet UR PRN (19:35)
[2024-10-11 19:37] VITALS: BP 102/57
[2024-10-12 00:09] VITALS: BP 113/53
[2024-10-12 03:23] VITALS: BP 102/48
[2024-10-12 03:57] LABS: Hematocrit 22.1 % (37.0-53.0); Hemoglobin 7.1 g/dL (13.5-17.5); Mean Corpuscular HGB 29.5 pg (26.0-34.0); Mean Corpuscular HGB Conc 32.1 g/dL (31.5-36.5); Mean Corpuscular Volume 92 fL (80-100); Mean Platelet Volume 10.1 fL (9.1-12.4); RDW Coefficient Variation 20.4 % (11.7-14.2); RDW Standard Deviation 67.7 fL (35.1-46.3); Red Blood Cell Count 2.41 M/mm3 (4.30-5.90); White Blood Cell Count 3.74 K/mm3 (4.00-11.30)
[2024-10-12 04:07] LABS: Platelet Count 20 K/mm3 (150-400)
[2024-10-12 04:16] LABS: Alanine Aminotransfer (ALT/SGP 6 U/L (12-78); Albumin, Blood 1.8 g/dL (3.4-5.0); Albumin/Globulin Ratio 0.4 (0.8-1.8); Alk Phos 51 U/L (50-136); Anion Gap 11 mmol/L (3-11); Aspartate Aminotrans (AST/SGOT 9 U/L (12-37); Bilirubin, Total 0.3 mg/dL (0.1-1.0); Blood Urea Nitrogen 40 mg/dL (8-24); Bun/Creatinine Ratio 27.6 (12.0-20.0); CO2, Blood 17 mmol/L (21-32); Calcium, Blood 7.8 mg/dL (8.5-10.1); Chloride, Blood 110 mmol/L (98-108); Creatinine, Blood 1.45 mg/dL (0.60-1.20); Globulin, Blood 4.5 g/dL (2.2-4.0); Glomerular Filtration Rate 48 (60-); Glucose, Blood 114 mg/dL (70-99); Potassium, Blood 3.4 mmol/L (3.5-5.5); Sodium, Blood 135 mmol/L (136-145); Total Protein, Blood 6.3 g/dL (6.4-8.2); Vancomycin, Random 15.4 ug/mL
[2024-10-12 04:32] LABS: BAND PERCENT MAN 12 % (0-8); BASOPHILS ABSOLUTE MAN 0.03 K/mm3 (0.00-0.23); BASOPHILS PERCENT MAN 1 % (0-2); EOSINOPHILS ABSOLUTE MAN 0.37 K/mm3 (0.00-0.68); EOSINOPHILS PERCENT MAN 10 % (0-6); LYMPHOCYTES ABSOLUTE MAN 0.18 K/mm3 (0.84-5.20); LYMPHOCYTES PERCENT MAN 5 % (21-46); METAMYELOCYTE ABSOLUTE MAN 0.03 K/mm3 (0.00-0.00); METAMYELOCYTE PERCENT MAN 1 % (0-0); MONOCYTES ABSOLUTE MAN 0.26 K/mm3 (0.16-1.47); MONOCYTES PERCENT MAN 7 % (4-13); NEUTROPHILS ABSOLUTE MAN 2.84 K/mm3 (1.96-9.15); SEG NEUTROPHILS PERCENT MAN 64 % (41-73); TOTAL CELLS COUNTED 100
--- NOTE | 2024-10-12 05:38 | NUR ---
SHIFT SUMMARY PATIENT ALERT, ORIENTED x3-4. VERY [place]UM[place]. PATIENT ABLE TO MAKE NEEDS KNOWN TO STAFF. BP STABLE. ON RA WITH SPO2 >90%. TELE READING SR DURING THE NIGHT. JEFE PLACED THIS SHIFT D/T RETENTION, PATIENT TOLERATED WELL. PATIENT CONTINUES TO HAVE LIQUID STOOLS BUT AMOUNT HAS DECREASED. RECTAL BAG REMOVED THIS SHIFT D/T FALLING OFF. NO OTHER CHANGES THIS SHIFT, WILL REPORT TO DAY SHIFT RN.
[2024-10-12 07:27] VITALS: BP 115/52
--- NOTE | 2024-10-12 07:42 | NUR ---
AM NOTE PT ALERT, ORIENTEDx4; [place]. PT RESTING IN BED. UP WITH 2 PERSON ASSIST. PT HAS CATHETER IN PLACE, PATENT AND DRAINING. PT DENIES PAIN, CHEST PAIN/PRESSURE, SOB, NAUSEA, DIZZINESS AND NUMB/TINGLING. TELE SINUS 80'S, BP STABLE, NO EDEMA NOTED. SPO2 >90% ON RA, BREATHING EVEN AND UNALBORED, LS CLEAR. ABD SOFT, TENDER ON PALP, HYPOACTIVE BT T/O. OTHER VSS. NO OTHER ACUTE CHANGES NOTED. WILL COTNINUE TO MONITOR.
[2024-10-12] MEDS ORDERED: Potassium Chloride 20 MEQ TabCR PO ONE (09:00)
[2024-10-12] MEDS ORDERED: Vancomycin HCL 1,000 MG in NS 250 ML IV SCH (09:00)
[2024-10-12] MEDS ORDERED: Tamsulosin HCl 0.4 MG Cap PO SCH (12:00)
[2024-10-12 16:22] VITALS: BP 108/50
--- NOTE | 2024-10-12 16:37 | NUR ---
Shift Summary No acute chagnes noted t/o shift. Pt had 1 bm during shift. Discussed chirinos catheter with Dr Wood this am, plans to remove catheter tomorrow, started flomax today. Other vss. No other acute changes noted. Will continue to monitor.
[2024-10-12] MEDS ORDERED: NS 1,000 ML IV SCH (18:05)
[2024-10-12 19:45] VITALS: BP 110/61
[2024-10-12] MEDS ORDERED: Trimethoprim/Sulfamethoxazole DS Tab PO SCH (21:00)
[2024-10-13 00:32] VITALS: BP 113/64
[2024-10-13 04:24] VITALS: BP 107/83
--- NOTE | 2024-10-13 05:46 | NUR ---
NOC SUMMARY- THIS AM PT REPORTED N/V AND CX PAIN. A EKG WAS OBTAINED AND WAS UNREMARKABLE. PT REPORTS CX/ ABD PAIN IMPROVES WITH FLATUS. DR WILLIAMSON WAS NOTIFIED OF EKG RESULTS. PT WAS GIVEN TYLENOL FOR PAIN AND ZOFRAN FOR NAUSEA. PT HAS BEEN ABLE TO SLEEP. PT MAYBERRY IS DRAINING TO GRAVITY. PT HAS HAD ONE LOOSE THIS SHIFT. PT CALL LIGHT IN REACH.
[2024-10-13 07:51] VITALS: BP 128/59
--- NOTE | 2024-10-13 08:15 | NUR ---
AM NOTE PT ALERT, ORIENTED X4; IRRITABILE BUT COOPERATIVE WITH CARE, PT STATES HE DID NOT SLEEP LAST NIGHT AND IS ASKING FOR TIME TO CATCH UP. PT ASKED RN TO STOP YELLING AT HIM, PT ORUTSARARMIUT, WHEN SOFTENED VOICE PT UNABLE TO HEAR, EXPLAINED THAT I AM NOT YELLING, JUST TALKING LOUDLY FOR HIM TO HEAR. PT UP WITH 1-2 PERSON ASSIST, REPOSITIONED Q2. PT REPORT "TENDERNESS" EVERYHWERE AND PAIN TO THE RIGHT INNER ELBOW, SLIGHTLY RED. PT DENIES CHEST PAIN/PRESSURE, SOB, [place], DIZZINESS AND NUMB/TINGLING. TELE SINUS 70'S, BP STABLE. NO EDEMA NOTED. SPO2 >90% ON RA, BREATHING EVEN AND UNLABORED. ABD SOFT, NONTENDER, HYPERACTIVE BT T/O. WOUND TO LEFT CALF DRESSING CHANGES LAST SHIFT. OTHER VSS. NO OTHER ACUTE CHANGES NOTED. WILL CONTINUE TO MONITOR.
[2024-10-13 09:25] LABS: Hematocrit 22.5 % (37.0-53.0); Mean Corpuscular HGB 28.9 pg (26.0-34.0); Mean Corpuscular HGB Conc 31.1 g/dL (31.5-36.5); Mean Corpuscular Volume 93 fL (80-100); Mean Platelet Volume 9.5 fL (9.1-12.4); RDW Coefficient Variation 20.1 % (11.7-14.2); RDW Standard Deviation 68.3 fL (35.1-46.3); Red Blood Cell Count 2.42 M/mm3 (4.30-5.90); White Blood Cell Count 3.76 K/mm3 (4.00-11.30)
[2024-10-13 09:30] LABS: Platelet Count 15 K/mm3 (150-400)
[2024-10-13 09:46] LABS: BAND PERCENT MAN 2 % (0-8); BASOPHILS PERCENT MAN 0 % (0-2); EOSINOPHILS ABSOLUTE MAN 0.22 K/mm3 (0.00-0.68); EOSINOPHILS PERCENT MAN 6 % (0-6); LYMPHOCYTES PERCENT MAN 8 % (21-46); MONOCYTES ABSOLUTE MAN 0.26 K/mm3 (0.16-1.47); MONOCYTES PERCENT MAN 7 % (4-13); NEUTROPHILS ABSOLUTE MAN 2.97 K/mm3 (1.96-9.15); SEG NEUTROPHILS PERCENT MAN 77 % (41-73); TOTAL CELLS COUNTED 100
[2024-10-13 09:47] LABS: Albumin, Blood 1.8 g/dL (3.4-5.0); Anion Gap 13 mmol/L (3-11); Blood Urea Nitrogen 30 mg/dL (8-24); Bun/Creatinine Ratio 22.2 (12.0-20.0); CO2, Blood 16 mmol/L (21-32); Calcium, Blood 7.6 mg/dL (8.5-10.1); Chloride, Blood 113 mmol/L (98-108); Creatinine, Blood 1.35 mg/dL (0.60-1.20); Glomerular Filtration Rate 53 (60-); Glucose, Blood 181 mg/dL (70-99); Phosphorus, Blood 2.4 mg/dL (2.5-4.9); Potassium, Blood 3.8 mmol/L (3.5-5.5); Sodium, Blood 138 mmol/L (136-145)
--- NOTE | 2024-10-13 11:14 | NUR ---
MET WITH PT WHO STATES HE'S FEELING "PRETTY GOOD," STATES HE'S FEELING MORE EXCITED ABOUT THE MOVE TO [place] FROM HIS HOME. HE STATES HE INITIALLY WASN'T HAPPY ABOUT IT, BUT LIKES HAVING MEALS PREPARED, LAUNDRY SERVICES, AND MEETING OTHER RESIDENTS. HE STATES HE'S HAD TROUBLE IN THE PAST WITH [facility] SPOKE WITH PT'S DAUGHTER GOPI BY PHONE, SHE STATES THE PATIENT HAS NOT HAD GOOD COORDINATION BETWEEN [place] AND DR. GALINDO'S OFFICE REGARDING HIS RETACRIT SHOTS THAT HE NEEDS FOR MYELODYSPLASTIC SYNDROME. ACCORDING TO GOPI, THE [place] [facility] REPORTED THE RETACRIT RX WAS , AND WHILE THEY ATTEMPTED TO GET A NEW RX, THE PATIENT ENDED UP HOSPITALIZED WITH HORTENSIA, CKD AND ANEMIA. PLAN TO F/U WITH RN AT [place] REGARDING RETACRIT SHOTS, THIS MAY BE SOMETHING THAT COULD BE GIVEN BY FACILITY RN? OR AT LEAST THE FACILITY CAN MANAGE ORDERING IT. GOPI IS ALSO INTERESTED IN CHANGING TO ANOTHER LOCAL CONSTRUCTION DRIVER/ONCOLOGIST, WHICH SHE CAN REQUEST THROUGH PT'S PCP. HOPEFUL THAT PT'S OVERALL CONDITION WILL IMPROVE WITH REGULAR MEDICATION ADMINISTRATION AND CAREGIVING ASSISTANCE. PLAN TO PLACE [place] OUTPATIENT PALLIATIVE CARE CONSULT WELL.
[2024-10-13 14:42] VITALS: BP 113/49
--- NOTE | 2024-10-13 14:53 | NUR ---
Report given to [facility] [place] assuming care of patient. Pt trasnfered out of room at 1450; no acute changes noted. Pt appears to be sleeping for majority of shift.
--- NOTE | 2024-10-13 16:23 | NUR ---
pt came from [facility]. pt has no questions or concerns at this time. pt has no c/o pain nausea, sob or chest pain
[2024-10-13] MEDS ORDERED: Calcium Carbonate 500 MG Tab Chew PO PRN (19:05)
[2024-10-13] MEDS ORDERED: Famotidine 20 MG Tab PO SCH (20:00)
[2024-10-13 20:05] VITALS: BP 121/45
[2024-10-14 04:08] VITALS: BP 115/52
[2024-10-14 05:19] LABS: BASOPHILS ABSOLUTE AUTO 0.07 K/mm3 (0.00-0.23); BASOPHILS PERCENT AUTO 2 % (0-2); EOSINOPHILS ABSOLUTE AUTO 0.26 K/mm3 (0.00-0.68); EOSINOPHILS PERCENT AUTO 8 % (0-6); Hematocrit 19.7 % (37.0-53.0); Hemoglobin 6.2 g/dL (13.5-17.5); Mean Corpuscular HGB 29.1 pg (26.0-34.0); Mean Corpuscular HGB Conc 31.5 g/dL (31.5-36.5); Mean Corpuscular Volume 93 fL (80-100); RDW Coefficient Variation 20.4 % (11.7-14.2); RDW Standard Deviation 68.2 fL (35.1-46.3); Red Blood Cell Count 2.13 M/mm3 (4.30-5.90); White Blood Cell Count 3.22 K/mm3 (4.00-11.30)
[2024-10-14 05:26] LABS: IMMATURE GRAN ABSOLUTE AUTO 0.46 K/mm3 (0.00-0.10); IMMATURE GRAN PERCENT AUTO 14 % (0-1); LYMPHOCYTES ABSOLUTE AUTO 0.52 K/mm3 (0.84-5.20); LYMPHOCYTES PERCENT AUTO 16 % (21-46); MONOCYTES ABSOLUTE AUTO 0.48 K/mm3 (0.16-1.47); MONOCYTES PERCENT AUTO 15 % (4-13); NEUTROPHILS ABSOLUTE AUTO 1.43 K/mm3 (1.96-9.15); NEUTROPHILS PERCENT AUTO 44 % (41-73)
[2024-10-14 05:35] LABS: Platelet Count 12 K/mm3 (150-400)
[2024-10-14 05:38] LABS: Albumin, Blood 1.8 g/dL (3.4-5.0); Anion Gap 11 mmol/L (3-11); Blood Urea Nitrogen 30 mg/dL (8-24); Bun/Creatinine Ratio 16.3 (12.0-20.0); CO2, Blood 18 mmol/L (21-32); Calcium, Blood 7.6 mg/dL (8.5-10.1); Chloride, Blood 113 mmol/L (98-108); Creatinine, Blood 1.84 mg/dL (0.60-1.20); Glomerular Filtration Rate 36 (60-); Glucose, Blood 131 mg/dL (70-99); Phosphorus, Blood 2.8 mg/dL (2.5-4.9); Potassium, Blood 3.7 mmol/L (3.5-5.5); Sodium, Blood 138 mmol/L (136-145)
[2024-10-14 05:54] LABS: BAND PERCENT MAN 1 % (0-8); BASOPHILS ABSOLUTE MAN 0.03 K/mm3 (0.00-0.23); BASOPHILS PERCENT MAN 1 % (0-2); EOSINOPHILS ABSOLUTE MAN 0.28 K/mm3 (0.00-0.68); EOSINOPHILS PERCENT MAN 9 % (0-6); LYMPHOCYTES % ATYPICAL MANUAL 1 % (0-0); LYMPHOCYTES ABSOLUTE MAN 0.54 K/mm3 (0.84-5.20); LYMPHOCYTES PERCENT MAN 16 % (21-46); MONOCYTES ABSOLUTE MAN 0.35 K/mm3 (0.16-1.47); MONOCYTES PERCENT MAN 11 % (4-13); NEUTROPHILS ABSOLUTE MAN 1.99 K/mm3 (1.96-9.15); SEG NEUTROPHILS PERCENT MAN 61 % (41-73); TOTAL CELLS COUNTED 100
--- NOTE | 2024-10-14 06:02 | NUR ---
SUMMARY: PT A/OX4, CALLS APPRPROPRIATELY TO SPECIFY NEEDS AND IS PLEASANT AND COOPERATIVE W/CARE BUT VERY ANVIK. HE REMAINS ON BEDREST AT THIS TIME BUT IS ABLE TO HELP TURN AND GRADUALLY REPOSITION SELF IN BED. MAYBERRY IS PATENT FOR RETENTION AND MEPILEX IS INTACT TO HEALING SCAB ON BUTTOCKS. PT ALSO HAS DX TO L.OUTER [place] THAT REMAINS C/D/I. TYLENOL WAS PROVIDED PER PT REQUEST FOR TOLERABLE RELIEF OF "ALL OVER" PAIN. HE ALSO C/O SORE R.ARM FROM PREVIOUS IV SITE. ATTENDS CHANGED PRN FOR X1 LOOSE MUCOUSY STOOL. NO ACUTE CHANGES, VSS AND AFEBRILE. AM LABS PENDING. WCTM AND REPORT TO DAY RN.
--- NOTE | 2024-10-14 07:31 | NUR ---
ASSUMPTION OF CARE: ASSUMED CARE OF PATIENT. AWAKE DURING SHIFT CHANGE REPORT REPORT. LYING IN BED c EYES OPEN, WATCHING TV. 2.5LPM/NC. BREATHING EVEN AND UNLABORED. DENIES ANY ACUTE NEEDS. BED IN LOWEST POSITION. CALL LIGHT WITHIN REACH. NO ACUTE NEEDS.
--- NOTE | 2024-10-14 07:32 | NUR ---
ASSUMPTION OF CARE: ASSUMED CARE OF PATIENT. SHIFT CHANGE REPORT COMPLETED. LYING IN BED c EYES CLOSED. MAYBERRY PATENT AND DRAINING LIGHT YELLOW URINE TO GRAVITY ON RIGHT SIDE OF BED. BREATHING EVEN AND UNLABORED. BED IN LOWEST POSITION. CALL LIGHT WITHIN REACH. NO ACUTE NEEDS.
[2024-10-14 08:32] VITALS: BP 117/55
[2024-10-14 11:44] VITALS: BP 111/47
--- NOTE | 2024-10-14 12:04 | NUR ---
1u PRBC STARTED. VERIFICATION PROVIDED BY LELIA ANDRADE RN.
[2024-10-14 12:13] VITALS: BP 110/73
--- NOTE | 2024-10-14 16:20 | NUR ---
LEFT [place] WOUND CLEANSED WITH STERILE SALINE AND PATTED DRY. COVERED WITH VASELINE GAUZE, TELFA DRESSING AND STOCKINETTE APPLIED OVER CALF TO SECURE DRESSING
[2024-10-14 16:21] VITALS: BP 122/51
--- NOTE | 2024-10-14 19:35 | NUR ---
END OF SHIFT SUMMARY: A&Ox4. PLEASANT AND COOPERATIVE WITH CARE. CALLS APPROPRIATELY AND IS ABLE TO ADVOCATE NEEDS EFFECTIVELY. BEDREST. MAYBERRY FOR URINARY RETENTION. INCONTINENT OF STOOL. PRECAUTIONS FOR C-DIFF. C / O PAIN IN BACK NOT RELIEVED c REPOSITIONING. PRN APAP GIVEN. EXTREMELY HARD OF HEARING. 1u PRBC ADMINISTERED TODAY FOR HGB 6.5. BED IN LOWEST POSITION, CALL LIGHT WITHIN REACH, ALL NEEDS MET. REPORT TO ONCOMING NURSE.
[2024-10-14 20:12] VITALS: BP 146/65
[2024-10-15 00:07] VITALS: BP 121/54
[2024-10-15 04:37] VITALS: BP 139/59
--- NOTE | 2024-10-15 05:16 | NUR ---
SUMMARY: PT A/OX4, CALLS APPROPRIATELY AND IS PLEASANT AND COOPERATIVE W/CARE. 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 PT REMAINS ON BEDREST D/T WEAKNESS PENDING PT/OT EVAL. MAYBERRY IS IN PLACE FOR RETENTION AND ATTENDS CHANGED PRN FOR BOWEL INCONTINENCE. C.DIFF PREC'S IN PLACE. TYLENOL RECEIVED FOR TOLERABLE RELIEF OF BACK PAIN AND PT REFUSED K-PAD. TURN SCHEDULE MAINTAINED AND MEPILEX IS INTACT TO HEALING SCAB ON BUTTOCKS. DX TO [facility] [place] REMAINS C/D/I. NO ACUTE CHANGES, VSS/AFEBRILE. AM LABS PENDING. WCTM AND REPORT TO DAY RN.
[2024-10-15 07:14] LABS: Hematocrit 22.5 % (37.0-53.0); Hemoglobin 7.3 g/dL (13.5-17.5); Mean Corpuscular HGB 29.4 pg (26.0-34.0); Mean Corpuscular HGB Conc 32.4 g/dL (31.5-36.5); Mean Corpuscular Volume 91 fL (80-100); RDW Standard Deviation 66.8 fL (35.1-46.3); Red Blood Cell Count 2.48 M/mm3 (4.30-5.90); White Blood Cell Count 3.53 K/mm3 (4.00-11.30)
[2024-10-15 07:34] LABS: Platelet Count 11 K/mm3 (150-400)
[2024-10-15 07:41] VITALS: BP 126/51
[2024-10-15 07:46] LABS: Albumin, Blood 1.9 g/dL (3.4-5.0); Anion Gap 10 mmol/L (3-11); Blood Urea Nitrogen 37 mg/dL (8-24); Bun/Creatinine Ratio 16.3 (12.0-20.0); CO2, Blood 18 mmol/L (21-32); Calcium, Blood 7.7 mg/dL (8.5-10.1); Chloride, Blood 112 mmol/L (98-108); Creatinine, Blood 2.27 mg/dL (0.60-1.20); Glomerular Filtration Rate 28 (60-); Glucose, Blood 166 mg/dL (70-99); Phosphorus, Blood 2.3 mg/dL (2.5-4.9); Potassium, Blood 3.7 mmol/L (3.5-5.5); Sodium, Blood 136 mmol/L (136-145)
[2024-10-15 07:56] LABS: BAND PERCENT MAN 9 % (0-8); BASOPHILS PERCENT MAN 0 % (0-2); EOSINOPHILS ABSOLUTE MAN 0.14 K/mm3 (0.00-0.68); EOSINOPHILS PERCENT MAN 4 % (0-6); LYMPHOCYTES % ATYPICAL MANUAL 2 % (0-0); LYMPHOCYTES ABSOLUTE MAN 0.42 K/mm3 (0.84-5.20); LYMPHOCYTES PERCENT MAN 10 % (21-46); MONOCYTES ABSOLUTE MAN 0.17 K/mm3 (0.16-1.47); MONOCYTES PERCENT MAN 5 % (4-13); NEUTROPHILS ABSOLUTE MAN 2.78 K/mm3 (1.96-9.15); SEG NEUTROPHILS PERCENT MAN 70 % (41-73); TOTAL CELLS COUNTED 100
[2024-10-15 11:51] VITALS: BP 116/56
[2024-10-15] MEDS ORDERED: NS 1,000 ML IV SCH (13:00)
[2024-10-15 15:09] VITALS: BP 121/52
--- NOTE | 2024-10-15 19:28 | NUR ---
assumed care of pt. pleasent a/o but very [place]. uneventful day for pt, pt was hoping to go home today but MD would like him to stay an additional day for some fluids ands better understanding of where he needs to go for rehab. chirinos draining clr yellow. iv to left wrist infusing. no s/s of distress no c/o pain call light within reach, can make needs known
[2024-10-15 20:05] VITALS: BP 124/41
[2024-10-16] VITALS (10 sets, daily range): BP systolic 122–172; BP diastolic 55–75
--- NOTE | 2024-10-16 05:16 | NUR ---
SHIFT SUMMARY 79 YR M ADMITTED ON 10/10/24. DNR. NO ACUTE CHANGES THIS SHIFT. PT HAS BEEN PLEASANT AND COOPERATIVE WITH CARE. HE C/O BACK PAIN AND WAS MEDICATED W/ TYLENOL PER EMAR. HE APPEARS TO HAVE SLEPT WELL FOR MOST OF THE SHIFT. UP EARLY AT 0430 ASKING FOR COFFEE. NO NEW CHANGES TO REPORT. BED IN LOW PSOITION AND CALL LIGHT IN REACH.
[2024-10-16 06:00] LABS: BASOPHILS ABSOLUTE AUTO 0.03 K/mm3 (0.00-0.23); BASOPHILS PERCENT AUTO 1 % (0-2); EOSINOPHILS ABSOLUTE AUTO 0.16 K/mm3 (0.00-0.68); EOSINOPHILS PERCENT AUTO 7 % (0-6); Hematocrit 19.5 % (37.0-53.0); Hemoglobin 6.3 g/dL (13.5-17.5); LYMPHOCYTES ABSOLUTE AUTO 0.61 K/mm3 (0.84-5.20); LYMPHOCYTES PERCENT AUTO 28 % (21-46); MONOCYTES PERCENT AUTO 18 % (4-13); Mean Corpuscular HGB 28.9 pg (26.0-34.0); Mean Corpuscular HGB Conc 32.3 g/dL (31.5-36.5); Mean Corpuscular Volume 89 fL (80-100); NEUTROPHILS ABSOLUTE AUTO 0.78 K/mm3 (1.96-9.15); NEUTROPHILS PERCENT AUTO 35 % (41-73); RDW Coefficient Variation 19.3 % (11.7-14.2); RDW Standard Deviation 63.6 fL (35.1-46.3); Red Blood Cell Count 2.18 M/mm3 (4.30-5.90); White Blood Cell Count 2.21 K/mm3 (4.00-11.30)
[2024-10-16 06:04] LABS: IMMATURE GRAN ABSOLUTE AUTO 0.23 K/mm3 (0.00-0.10); IMMATURE GRAN PERCENT AUTO 10 % (0-1)
[2024-10-16 06:06] LABS: Platelet Count 8 K/mm3 (150-400)
[2024-10-16 06:30] LABS: BASOPHILS ABSOLUTE MAN 0.04 K/mm3 (0.00-0.23); BASOPHILS PERCENT MAN 2 % (0-2); EOSINOPHILS ABSOLUTE MAN 0.11 K/mm3 (0.00-0.68); EOSINOPHILS PERCENT MAN 5 % (0-6); LYMPHOCYTES ABSOLUTE MAN 0.79 K/mm3 (0.84-5.20); LYMPHOCYTES PERCENT MAN 36 % (21-46); MONOCYTES ABSOLUTE MAN 0.33 K/mm3 (0.16-1.47); MONOCYTES PERCENT MAN 15 % (4-13); NEUTROPHILS ABSOLUTE MAN 0.92 K/mm3 (1.96-9.15); SEG NEUTROPHILS PERCENT MAN 42 % (41-73); TOTAL CELLS COUNTED 100
[2024-10-16 06:34] LABS: Albumin, Blood 1.8 g/dL (3.4-5.0); Anion Gap 11 mmol/L (3-11); Blood Urea Nitrogen 34 mg/dL (8-24); Bun/Creatinine Ratio 16.4 (12.0-20.0); CO2, Blood 18 mmol/L (21-32); Calcium, Blood 7.6 mg/dL (8.5-10.1); Chloride, Blood 112 mmol/L (98-108); Creatinine, Blood 2.07 mg/dL (0.60-1.20); Glomerular Filtration Rate 32 (60-); Glucose, Blood 131 mg/dL (70-99); Phosphorus, Blood 2.4 mg/dL (2.5-4.9); Potassium, Blood 3.7 mmol/L (3.5-5.5); Sodium, Blood 137 mmol/L (136-145)
[2024-10-16] MEDS ORDERED: Famotidine 20 MG Tab PO SCH (09:00)
[2024-10-16] MEDS ORDERED: EPOETIN ALFA EPBX 40000 UNIT/ML SC SCH (12:00)
[2024-10-16] MEDS ORDERED: EPOETIN ALFA EPBX 40000 UNIT/ML IV SCH (12:00)
[2024-10-16 14:20] LABS: Hematocrit 22.2 % (37.0-53.0); Hemoglobin 7.3 g/dL (13.5-17.5); Mean Corpuscular HGB 29.8 pg (26.0-34.0); Mean Corpuscular HGB Conc 32.9 g/dL (31.5-36.5); Mean Corpuscular Volume 91 fL (80-100); RDW Coefficient Variation 18.5 % (11.7-14.2); Red Blood Cell Count 2.45 M/mm3 (4.30-5.90); White Blood Cell Count 2.37 K/mm3 (4.00-11.30)
[2024-10-16 14:39] LABS: Platelet Count 13 K/mm3 (150-400)
[2024-10-16 14:48] LABS: BAND PERCENT MAN 3 % (0-8); BASOPHILS ABSOLUTE MAN 0.07 K/mm3 (0.00-0.23); BASOPHILS PERCENT MAN 3 % (0-2); EOSINOPHILS ABSOLUTE MAN 0.35 K/mm3 (0.00-0.68); EOSINOPHILS PERCENT MAN 15 % (0-6); LYMPHOCYTES ABSOLUTE MAN 0.47 K/mm3 (0.84-5.20); LYMPHOCYTES PERCENT MAN 20 % (21-46); MONOCYTES ABSOLUTE MAN 0.16 K/mm3 (0.16-1.47); MONOCYTES PERCENT MAN 7 % (4-13); SEG NEUTROPHILS PERCENT MAN 52 % (41-73); TOTAL CELLS COUNTED 100
[2024-10-16] MEDS ORDERED: Miconazole Nitrate 2% 85 GM PWD TOP PRN (15:55)
--- NOTE | 2024-10-16 18:52 | NUR ---
ASSUMED CARE OF PT PT DID VERY WELL TODAY WAS A/O X 4 CALLING APPROPRIATE AND STATED HE FELT GOOD TODAY. MAYBERRY DRAINING CLR YELLOW, iv site to left wrist PATENT. PRBC AND PLETLETS WERE INFUSED TODAY WITH OUT ISSUE, VSS AND NO DISTRESS NOTED. CRITICAL LOW PLATELETS WERE REPORTED AFTER TRANSFUSION BUT WERE UP HIGHER THAN PREVIOUS. PHYSICAL T WORKED WITH PT AND ASSISTED TO CHAIR, PT SAT UP FOR 2 HOURS THEN WAS ASSITED BACK TO BED. GROIN RASH WAS TREATED WITH ANTIFUNGAL POWDER.
[2024-10-16] MEDS ORDERED: Banana Flakes/Tos 1 EA Powder Pack PO SCH (21:00)
--- NOTE | 2024-10-16 23:54 | NUR ---
PT RESTING QUIETLY IN BED AT START OF SHIFT. PER REPORT, PT UP TO CHAIR IN AFTERNOON AND JUST BACK TO BED AT DINNER TIME. PT WOKE EASILY FOR CARE. UP TO BTHRM WITH SBA; PT IN CONTACT ISO FOR C-DIFF. PLEASANT AND CO-OP WITH CARE. VERY [place]. MEDS WHOLE IN APPLESAUCE ONE AT A TIME. PT HOPING TO TX TO [facility] TOMORROW. MAYBERRY TO GRAVITY FOR RETENSION. CALL LT IN REACH. ABLE TO MAKE NEEDS KNOWN.
--- NOTE | 2024-10-17 04:10 | NUR ---
RESUMED CARE FOR PT WITH NO ACUTE CHANGES NOTED. PT NOTED TO CALL APPROPRIATE WHEN NEEDED. PT NOTED TO USE RESTROOM X1 THIS SHIFT WITH SMALL PUTTY LIKE BM NOTED. PT CONT TO UTILIZE MAYBERRY FOR RETENTION. YELLOW URINE NOTED. PT HAS RESTED WELL THIS SHIFT. PLAN IS TO DC TO [facility] FOR REHAB TOMORROW.
[2024-10-17 04:28] VITALS: BP 155/63
[2024-10-17 05:33] LABS: Hematocrit 24.5 % (37.0-53.0); Hemoglobin 8.2 g/dL (13.5-17.5); Mean Corpuscular HGB 29.9 pg (26.0-34.0); Mean Corpuscular HGB Conc 33.5 g/dL (31.5-36.5); Mean Corpuscular Volume 89 fL (80-100); RDW Coefficient Variation 18.7 % (11.7-14.2); RDW Standard Deviation 60.1 fL (35.1-46.3); Red Blood Cell Count 2.74 M/mm3 (4.30-5.90); White Blood Cell Count 2.03 K/mm3 (4.00-11.30)
[2024-10-17 05:53] LABS: Platelet Count 11 K/mm3 (150-400)
[2024-10-17 06:01] LABS: Anion Gap 9 mmol/L (3-11); Blood Urea Nitrogen 28 mg/dL (8-24); Bun/Creatinine Ratio 15.9 (12.0-20.0); CO2, Blood 19 mmol/L (21-32); Chloride, Blood 112 mmol/L (98-108); Creatinine, Blood 1.76 mg/dL (0.60-1.20); Glomerular Filtration Rate 38 (60-); Glucose, Blood 132 mg/dL (70-99); Phosphorus, Blood 2.5 mg/dL (2.5-4.9); Potassium, Blood 3.9 mmol/L (3.5-5.5); Sodium, Blood 136 mmol/L (136-145)
[2024-10-17 06:05] LABS: BAND PERCENT MAN 3 % (0-8); BASOPHILS PERCENT MAN 0 % (0-2); EOSINOPHILS ABSOLUTE MAN 0.18 K/mm3 (0.00-0.68); EOSINOPHILS PERCENT MAN 9 % (0-6); LYMPHOCYTES % ATYPICAL MANUAL 1 % (0-0); LYMPHOCYTES ABSOLUTE MAN 0.66 K/mm3 (0.84-5.20); LYMPHOCYTES PERCENT MAN 32 % (21-46); METAMYELOCYTE ABSOLUTE MAN 0.02 K/mm3 (0.00-0.00); METAMYELOCYTE PERCENT MAN 1 % (0-0); MONOCYTES ABSOLUTE MAN 0.32 K/mm3 (0.16-1.47); MONOCYTES PERCENT MAN 16 % (4-13); NEUTROPHILS ABSOLUTE MAN 0.83 K/mm3 (1.96-9.15); SEG NEUTROPHILS PERCENT MAN 38 % (41-73); TOTAL CELLS COUNTED 100
--- NOTE | 2024-10-17 06:05 | NUR ---
CRITICAL LAB: CRITICAL PLATELETES AT 11, NOTIFIED DR. WILLIAMSON AND NO NEW ORDERS AT THIS TIME, CONTINUE TO MONITOR.
[2024-10-17] MEDS ORDERED: Losartan Potassium 50 MG Tab PO SCH ×2 (07:00→09:00)
[2024-10-17 08:03] VITALS: BP 145/68
--- NOTE | 2024-10-17 08:21 | NUR ---
ASSUMPTION OF CARE: ASSUMED CARE OF PATIENT. ASLEEP DURING SHIFT CHANGE REPORT. LYING SUPINE IN BED. BREATHING EVEN AND UNLABORED. ROOM AIR. MAYBERRY PATENT AND DRAINING YELLOW URINE TO GRAVITY. BED IN LOWEST POSITION. CALL LIGHT WITHIN REACH. NO ACUTE NEEDS.
[2024-10-17 14:21] LABS: CORONAVIRUS COVID-19 AG Negative (NEGATIVE)
[2024-10-17 16:12] VITALS: BP 144/70
--- NOTE | 2024-10-17 18:14 | NUR ---
END OF SHIFT SUMMARY: A&Ox4. PLEASANT AND COOPERATIVE WITH CARE. CALLS APPROPRIATELY AND IS ABLE TO ADVOCATE NEEDS EFFECTIVELY. AMBULATES c SBA & FWW. MAYBERRY FOR ACUTE RETENTION PATENT AND DRAINING YELLOW URINE TO GRAVITY; ORDERS TO KEEP IN PLACE UPON DISCHARGE TO [facility]. PLANS FOR DISCHARGE TO [facility] TOMORROW; TRANSPORT SET FOR 1000. NURSE, LILI, FROM [facility], BROUGHT HIS PERSONAL WALKER IN, PER HIS REQUEST, HE IS CURRENTLY FIXATED ON HIS BELONGINGS BACK AT [facility]. BED IN LOWEST POSITION, CALL LIGHT WITHIN REACH, ALL NEEDS MET. REPORT TO ONCOMING NURSE.
[2024-10-17 21:19] VITALS: BP 155/58
[2024-10-18 03:45] VITALS: BP 133/63
--- NOTE | 2024-10-18 04:59 | NUR ---
SHIFT SUMMARY; PATIENT SLEPT IN LONG INTERVALS. NO BM'S THIS SHIFT. REMAINS IN CONTACT ENTERIC PRECAUTIONS.
--- NOTE | 2024-10-18 07:33 | NUR ---
ASSUMPTION OF CARE: ASSUMED CARE OF PATIENT. ASLEEP DURING SHIFT CHANGE REPORT. LYING ON LEFT SIDE. BREATHING EVEN AND UNLABORED. ROOM AIR. MAYBERRY PATENT AND DRAINING YELLOW URINE TO GRAVITY; ON RIGHT SIDE OF BED, OFF OF FLOOR. BED IN LOWEST POSITION. CALL LIGHT WITHIN REACH. NO ACUTE NEEDS.
[2024-10-18 07:37] VITALS: BP 144/74
[2024-10-18] MEDS ORDERED: BANATROL PLUS1 EAC1 PO (08:28)
[2024-10-18] MEDS ORDERED: [UNRECOGNIZED DRUG - CODE] SC (08:32)
[2024-10-18] MEDS ORDERED: DIFICID200 MG PO (08:33)
[2024-10-18] MEDS ORDERED: FAMO10 PO (08:33)
[2024-10-18] MEDS ORDERED: TAMS.4ER PO (08:34)
[2024-10-18] MEDS ORDERED: VISBIOME 112.51 EACH PO (08:34)
--- NOTE | 2024-10-18 10:36 | NUR ---
DISCHARGE SUMMARY: A&Ox. PLEASANT AND COOPERATIVE WITH CARE. CALLS APPROPRIATELY AND IS ABLE TO ADVOCATE NEEDS EFFECTIVELY. AMBULATES c FWW ADN 1PA/SBA. MAYBERRY PATENT AND DRAINING YELLOW URINE TO GRAVITY. CONTINENT OF BOWEL. LAST BM TODAY AND WAS SOFTLY FORMED. MEDS WHOLE c APPLESAUCE. NO TELE. IV REMOVED BY WAQAR LI. MED REC COMPLETED AND FAXED TO [facility]. INSTRUCTED TO FOLLOW-UP WITH PCP. LEFT FLOOR AT 1030 WITH ALL BELONGINGS AND DISCHARGE PACKET, ESCORTED BY MEDICAL TRANSPORT. REPORT CALLED TO LORENZO ANDRADE RN.
== END 2024-10-18 10:30 | DRG 811 ==
LOC: ER 16:05 → PCU 16:06 → ERHOLD 16:06 → PCU 20:49 → MEDS 10-10 15:19 → PCU 10-10 15:19 → MEDS 10-13 15:01 → ENPENDDIS 10-17 16:02 → MEDS 10-18 10:30
PROVIDERS: Family Medicine; Internal Medicine; Nurse Practitioner Acute Care; Student in an Organized Health Care Education/Training Program; ADMIT Student in an Organized Health Care Education/Training Program
PROC: 30233K1 Transfusion of Nonautologous Frozen Plasma into Peripheral Vein, Percutaneous Approach (ICD-10-PCS; principal; 2024-10-09)
PROC: 30233N1 Transfusion of Nonautologous Red Blood Cells into Peripheral Vein, Percutaneous Approach (ICD-10-PCS; 2024-10-09)
PROC: 30233R1 Transfusion of Nonautologous Platelets into Peripheral Vein, Percutaneous Approach (ICD-10-PCS; 2024-10-16)
PROC: 0T9B70Z Drainage of Bladder with Drainage Device, Via Natural or Artificial Opening (ICD-10-PCS; 2024-10-16)
DX: D46.9 Myelodysplastic syndrome, unspecified (principal); A41.02 Sepsis due to Methicillin resistant Staphylococcus aureus; J18.9 Pneumonia, unspecified organism; N17.9 Acute kidney failure, unspecified; A04.72 Enterocolitis due to Clostridium difficile, not specified as recurrent; N39.0 Urinary tract infection, site not specified; I24.89 Other forms of acute ischemic heart disease; E87.1 Hypo-osmolality and hyponatremia; I13.0 Hypertensive heart and chronic kidney disease with heart failure and stage 1 through stage 4 chronic kidney disease, or unspecified chronic kidney disease; R33.9 Retention of urine, unspecified; N18.2 Chronic kidney disease, stage 2 (mild); D63.1 Anemia in chronic kidney disease; E11.22 Type 2 diabetes mellitus with diabetic chronic kidney disease; K21.9 Gastro-esophageal reflux disease without esophagitis; D69.6 Thrombocytopenia, unspecified; L89.150 Pressure ulcer of sacral region, unstageable; I25.10 Atherosclerotic heart disease of native coronary artery without angina pectoris; Z66 Do not resuscitate; H26.9 Unspecified cataract; B96.89 Other specified bacterial agents as the cause of diseases classified elsewhere; Z90.89 Acquired absence of other organs; I50.9 Heart failure, unspecified
CPT/HCPCS: 36415; 36430; 71045; 74177; 80048; 80053; 80069; 80170; 80202; 81001; 82947; 83735; 83880; 84484; 85007; 85025; 85027; 85610; 85730; 86850; 86900; 86901; 86923; 87015; 87040; 87045; 87046; 87077; 87086; 87147; 87186; 87205; 87324; 87426-QW; 87428-QW; 87507; 87899; 93005; 93010; 93308; 93321; 94760; 97110; 97116; 97116-CQ; 97162; 97165; 97530; 97535; 99285-25; A9270; G0378; J0692; J0696; J1580; J2405; J3370; J7030; J7050; J7120; P9016; P9035; Q5106; Q9957; Q9967